=== PATIENT | male | born 1945 | race Caucasian/White ===

== ENCOUNTER 2018-01-13 17:05 | Inpatient (IN) | payer MEDICARE, OTHER ==
[~2018-01-13] VITALS: Ht 177.8 cm; Wt 94.9 kg
[~2018-01-13 17:05] MED LIST: ACET300T4 PO; ALLO300T2 PO; ASPI1TAB69 PO; FLUO40CA PO; HYDR12.56 PO; LISI40TA PO; SIMV40TA PO; TAMS0.4C4 PO
[2018-01-13 17:07] VITALS: BP 135/77; PULSE 90; RESP 16; TEMP 98.4; O2SAT 94
[2018-01-13] MEDS ORDERED: ACETAMINOPHEN/HYDROcodone 325 MG/5 MG TAB PO ONE (17:30)
--- NOTE | 2018-01-13 17:37 | PD ---
HPI Chief Complaint: Hip Injury Time Seen by Provider: 17:07 Travel History International Travel<30 days: No Contact w/Intl Traveler<30days: No Traveled to known affect area: No History of Present Illness HPI 72-year-old male arrives with pain in the right hip right knee and right elbow. He reports pulling weeds and using some heavy machinery yesterday when he fell. There is no loss of consciousness or head injury. The onset was sudden. Since then he has had constant pain in the right hip. It is worse to palpation. He has stepped a few steps with severe pain. He is unable to walk otherwise. 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) Psychiatric: Yes (ANXIETY AND DEPRESSION) Reproductive: No Respiratory: Yes (ASTHMATIC BRONCHITIS A CHILD) Thyroid Disease: No Influenza Vaccination: Yes Past Surgical History Abdominal Surgery: No AICD: No Cardiac Surgery: No Ear Surgery: No Endocrine Surgery: No Eye Surgery: Yes (NEEDLE IN OPTIC NERVE) Genitourinary Surgery: Yes (KIDNEY STONES, "TESTICULAR HERNIA") Gynecologic Surgery: No Joint Replacement: No Oral Surgery: Yes (TONSILLECTOMY) Pacemaker: No Thoracic Surgery: No Other Surgery: Yes Social History Alcohol Use: Yes (rarely) Tobacco Use: No Substance Use: No Allergies-Medications (Allergen,Severity, Reaction): Coded Allergies: Sulfa (Sulfonamide Antibiotics) (Unverified Allergy, Intermediate, 01/13/18 ) penicillin G (Unverified Allergy, Intermediate, Rash, 01/13/18) Reported Meds & Prescriptions Reported Meds & Active Scripts Active Hydrochlorothiazide 12.5 Mg Tab 12.5 Mg PO DAILY Acetaminophen-Codeine 300-60 mg Tab 1 Tab PO Q6HR PRN Reported Lisinopril 40 Mg Tab 40 Mg PO DAILY Allopurinol 300 Mg Tab 300 Mg PO DAILY Simvastatin 40 Mg Tab 40 Mg PO HS Tamsulosin (Tamsulosin HCl) 0.4 Mg Cap 0.4 Mg PO HS Fluoxetine (Fluoxetine HCl) 40 Mg Cap 40 Cap PO DAILY Aspirin 81 Mg Tabdr 81 Mg PO DAILY Review of Systems Except as stated in HPI: all other systems reviewed are Neg General / Constitutional: No: Fever Physical Exam Narrative GENERAL: 72-year-old male well-nourished well-developed no acute distress Vital Signs Date Time Temp Pulse Resp B/P (MAP) Pulse Ox O2 Delivery O2 Flow Rate FiO2 01/13/18 17:07 98.4 90 16 135/77 (96) 94 SKIN: Warm and dry. HEAD: Atraumatic. Normocephalic. EYES: Pupils equal and round. No scleral icterus. No injection or drainage. ENT: No nasal bleeding or discharge. Mucous membranes pink and moist. NECK: Trachea midline. No JVD. CARDIOVASCULAR: Regular rate and rhythm. RESPIRATORY: No accessory muscle use. Clear to auscultation. Breath sounds equal bilaterally. GASTROINTESTINAL: Abdomen soft, non-tender, nondistended. Hepatic and splenic margins not palpable. MUSCULOSKELETAL: No pain with axial load of the right lower extremity. There is tenderness overlying the greater trochanter on the right side. Pelvis feels stable on exam. Minimal abrasion overlying the lateral right knee. Minimal abrasion overlying the right elbow. NEUROLOGICAL: Awake and alert. No obvious cranial nerve deficits. Motor grossly within normal limits. Five out of 5 muscle strength in the arms and legs. Normal speech. PSYCHIATRIC: Appropriate mood and affect; insight and judgment normal. Data Data Last Documented VS Vital Signs Date Time Temp Pulse Resp B/P (MAP) Pulse Ox O2 Delivery O2 Flow Rate FiO2 01/13/18 17:07 98.4 90 16 135/77 (96) 94 Orders Orders Elbow, Complete (4 Vws) (01/13/18 17:16) Knee, Complete (4vws) (01/13/18 17:16) Ice/Cold Pack (01/13/18 17:16) Hip, Uni(Ap&Lat) W Ap Pelvis (01/13/18 ) Acetamin-Hydrocod 325-5 Mg ([place] 5-325 (01/13/18 17:30) Electrocardiogram (01/13/18 18:27) Complete Blood Count With Diff (01/13/18 18:27) Comprehensive Metabolic Panel (01/13/18 18:27) Prothrombin Time / Inr (Pt) (01/13/18 18:27) Act Partial Throm Time (Ptt) (01/13/18 18:27) Chest, Single Ap (01/13/18 18:27) Iv Access Insert/Monitor (01/13/18 18:27) Oximetry (01/13/18 18:27) Ecg Monitoring (01/13/18 18:27) Morphine Inj (Morphine Inj) (01/13/18 18:30) Sodium Chloride 0.9% Flush (Ns Flush) (01/13/18 18:30) Admit Order (Ed Use Only) (01/13/18 ) MDM Medical Decision Making Medical Screen Exam Complete: Yes Emergency Medical Condition: Yes Medical Record Reviewed: Yes Differential Diagnosis A fracture, femur fracture, elbow fracture Narrative Course Patient has a femoral neck fracture and will be admitted for operative repair. Discussed with ortho PA, Arsh Sands. Pt follows with [facility]. Admission to Dr Paul hull. Last Impressions Knee X-Ray 01/13/181715 Signed Impressions: Service Date/Time: Saturday, January 13, 2018 17:39 - CONCLUSION: 1. Degenerative changes. 2. Questionable fracture lateral tibial plateau. Sukhi Smith MD Elbow X-Ray 01/13/186 Signed Impressions: Service Date/Time: Saturday, January 13, 2018 17:45 - CONCLUSION: Degenerative changes without fracture. Sukhi Smith MD Hip and Pelvis X-Ray 01/13/18 0000 Signed Impressions: Service Date/Time: Saturday, January 13, 2018 17:36 - CONCLUSION: Nondisplaced fracture right femoral neck. Sukhi Smith MD Diagnosis Primary Impression: Femoral neck fracture Qualified Codes: S72.001A - Fracture of unspecified part of neck of right femur, initial encounter for closed fracture Additional Impression: Fall Qualified Codes: W19.XXXA - Unspecified fall, initial encounter Admitting Information Admitting Physician Requests: Admit Chadwick Wilder MD Jan 13, 2018 17:37
--- NOTE | 2018-01-13 18:16 | RADRPT ---
EXAM DATE/TIME: 01/13/2018 17:36 [facility] COMPARISON: No previous studies available for comparison. INDICATIONS : Patient complains of right hip pain status post fall. MEDICAL HISTORY : None. SURGICAL HISTORY : None. None. ENCOUNTER: Initial ACUITY: 1 day PAIN SCORE: 8/10 LOCATION: Right Hip FINDINGS: Examination of the right hip was performed with AP Pelvis. Nondisplaced fracture right femoral neck. The acetabulum is grossly intact. CONCLUSION: Nondisplaced fracture right femoral neck. Sukhi Smith MD on January 13, 2018 at 18:13 Board Certified Radiologist. This report was verified electronically.
--- NOTE | 2018-01-13 18:18 | RADRPT ---
EXAM DATE/TIME: 01/13/2018 17:39 [facility] COMPARISON: No previous studies available for comparison. INDICATIONS : Patient complains of right knee pain status post fall. MEDICAL HISTORY : None. SURGICAL HISTORY : None. ENCOUNTER: Initial ACUITY: 1 day PAIN SCORE: 5/10 LOCATION: Right Knee FINDINGS: Four view examination of the right knee demonstrates questionable fracture lateral tibial plateau. D egenerative changes. The suprapatellar soft tissues have a normal configuration. CONCLUSION: 1. Degenerative changes. 2. Questionable fracture lateral tibial plateau. Sukhi Smith MD on January 13, 2018 at 18:14 Board Certified Radiologist. This report was verified electronically.
--- NOTE | 2018-01-13 18:19 | RADRPT ---
EXAM DATE/TIME: 01/13/2018 17:45 [facility] COMPARISON: No previous studies available for comparison. INDICATIONS : Patient complains of right elbow pain status post fall. MEDICAL HISTORY : None. SURGICAL HISTORY : None. ENCOUNTER: Initial ACUITY: 1 day PAIN SCORE: 4/10 LOCATION: Right Elbow FINDINGS: Multiple view examination of the right elbow demonstrates no soft tissue swelling, joint effusion, or fracture. Degenerative changes without fracture. Bony mineralization is normal. CONCLUSION: Degenerative changes without fracture. Sukhi Smith MD on January 13, 2018 at 18:16 Board Certified Radiologist. This report was verified electronically.
[2018-01-13] MEDS ORDERED: MORPHINE SULFATE 4 MG/ML INJ IV PUSH ONE (18:30)
[2018-01-13] MEDS ORDERED: SODIUM CHLORIDE 0.9% FLUSH 10 ML FLUSH IVF PRN (18:30)
[2018-01-13 19:01] LABS: AUTOMATED NEUTROPHIL # 8.7 TH/MM3 (1.8-7.7); BASOPHIL # 0.1 TH/MM3 (0-0.2); BASOPHIL % 0.5 % (0.0-2.0); EOSINOPHIL # 0.5 TH/MM3 (0-0.4); EOSINOPHIL % 4.3 % (0.0-4.0); HEMATOCRIT 47.1 % (39.0-51.0); HEMOGLOBIN 15.7 GM/DL (13.0-17.0); LYMPH % 10.2 % (9.0-44.0); LYMPHOCYTE # 1.1 TH/MM3 (1.0-4.8); MEAN CELL VOLUME 89.9 FL (80.0-100.0); MEAN CORPUSCULAR HGB CONC 33.4 % (32.0-36.0); MEAN PLATELET VOLUME 7.9 FL (7.0-11.0); MONO % 6.5 % (0.0-8.0); MONOCYTE # 0.7 TH/MM3 (0-0.9); NEUT % 78.5 % (16.0-70.0); PLATELET COUNT 149 TH/MM3 (150-450); RED BLOOD COUNT 5.24 MIL/MM3 (4.50-5.90); RED CELL DISTRIBUTION WIDTH 14.9 % (11.6-17.2); WHITE BLOOD COUNT 11.1 TH/MM3 (4.0-11.0)
--- NOTE | 2018-01-13 19:17 | RADRPT ---
EXAM DATE/TIME: 01/13/2018 19:01 [facility] COMPARISON: No previous studies available for comparison. INDICATIONS : Evaluate for pneumothorax, pneumonia, and communicable diseases. Pre-op for right hip surgery. MEDICAL HISTORY : None. SURGICAL HISTORY : None. ENCOUNTER: Initial ACUITY: 1 day PAIN SCORE: 0/10 LOCATION: Bilateral chest FINDINGS: A single view of the chest demonstrates the lungs to be symmetrically aerated without evidence of mas s, infiltrate or effusion. The cardiomediastinal contours are unremarkable. Osseous structures are intact. CONCLUSION: No acute disease. Sukhi Smith MD on January 13, 2018 at 19:14 Board Certified Radiologist. This report was verified electronically.
[2018-01-13 19:42] VITALS: BP 128/88; PULSE 78; RESP 14; O2SAT 96
[2018-01-13 19:42] LABS: ALBUMIN 3.9 GM/DL (3.4-5.0); AST (GOT) 27 U/L (15-37); BICARBONATE 24.6 MEQ/L (21.0-32.0); BLOOD UREA NITROGEN 28 MG/DL (7-18); CALCIUM 9.2 MG/DL (8.5-10.1); CHLORIDE 108 MEQ/L (98-107); CREATININE 1.27 MG/DL (0.60-1.30); GLOMERULAR FILTRATION RATE 56 ML/MIN (>89); GLUCOSE,RANDOM 102 MG/DL (74-106); SODIUM (NA) 142 MEQ/L (136-145)
[2018-01-13 19:45] LABS: ALKALINE PHOSPHATASE 70 U/L (45-117); ALT (GPT) 38 U/L (12-78); TOTAL BILIRUBIN ADULT 0.5 MG/DL (0.2-1.0); TOTAL PROTEIN 7.5 GM/DL (6.4-8.2)
[2018-01-13] MEDS ORDERED: ONDANSETRON HCL 4 MG/2 ML VIAL IVP PRN (20:30)
[2018-01-13] MEDS ORDERED: SODIUM CHLORIDE 0.9% FLUSH 10 ML FLUSH IV FLUSH PRN (20:30)
[2018-01-13] MEDS ORDERED: BISACODYL 10 MG SUPP RECTAL PRN (20:30)
[2018-01-13] MEDS ORDERED: ACETAMINOPHEN 325 MG TAB PO PRN (20:30)
[2018-01-13] MEDS ORDERED: NALOXONE HCL 0.4 MG/ML AMP IV PUSH PRN (20:30)
--- NOTE | 2018-01-13 20:33 | HHI.HP ---
HPI Service Family Medicine Primary Care Physician Unknown Admission Diagnosis R Femoral Neck Fracture; Fall Diagnoses: International Travel<30 Days: No Contact w/Intl Traveler<30days: No Known Affected Area: No History of Present Illness is a [address] Kapadia with PMH of HTN, hyperlipidemia, and arthritis who presents to [place] ED due to inability to ambulate after fall injury resulting in femoral neck yesterday. Mr. Edward reports that he injured his right leg after a fall injury yesterday in his yard while attempting to help his daughter with yard work. Patient slipped while wearing sandals resulting in a fall where he landed on his side. Patient was unable to get up for 15 minutes after the fall, but was then able to ambulate indoors while limping. Patient was carrying a chain saw at the time of the fall but did not cut himself with it. Patient does not report any loss of consciousness or head injury with fall. Overnight, patient laid in bed and was unable to ambulate/get out of bed. Due to this, patient sought care today per his . Patient does not report symptoms at this time with exception of chronic bilateral lower extremity numbness/tingling. No recent changes. Patient does not report headache, vision changes, shortness of breath, chest pain, abnormal urination, or abnormal bowel movements. Supplemental interviewing after EMR Review: Patient denies any chest pain; he has not had this for several months. He did not follow-up with Cardiology as instructed by Dr. Kapadia 09/2017. Patient has not had any additional syncope since 09/2017. Patient has had chronic right knee pain; he has had prior discussions with [facility] physicians about possible surgical interventions to right knee. Review of Systems Constitutional: DENIES: Fever, Chills Eyes: COMPLAINS OF: Blurred vision (chronic), Vision loss (chronic) Ears, nose, mouth, throat: DENIES: Running Nose, Sinus Pain Respiratory: DENIES: Cough, Shortness of breath Gastrointestinal: DENIES: Abdominal pain, Constipation Genitourinary: DENIES: Urgency, Dysuria Musculoskeletal: COMPLAINS OF: Joint pain, DENIES: Back pain Integumentary: DENIES: Abnormal pigmentation Neurologic: DENIES: Headache, Localized weakness Psychiatric: DENIES: Anxiety, Confusion Past Family Social History Past Medical History Per Patient HTN HLP Arthritis Stroke R eye Per EMR Hypertension Gout Kidney stones Legally blind Osteoarthritis in knees and neck Inguinal hernia Varicose veins Tinnitus HLD Depression GERD Kidney disease PTSD, [employer] War vet: refuses psychiatry and counseling referrals Syncopal episodes (reported to me on 10/10/17, working up) Chest pains with exertion (reported to me on 10/10/17, referred to cardiology ) Past Surgical History Per Patient 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 Alcohol: Occasional Drug use: none Live with Disabled Physical Exam Vital Signs Vital Signs Date Time Temp Pulse Resp B/P (MAP) Pulse Ox O2 Delivery O2 Flow Rate FiO2 01/13/18 19:43 80 14 96 Room Air 01/13/18 19:42 78 14 128/88 (101) 96 Room Air 01/13/18 17:07 98.4 90 16 135/77 (96) 94 Physical Exam GENERAL: no apparent distress. SKIN: No rashes, ecchymoses or lesions. Cool and dry. Tattoos on skin HEAD: Atraumatic. Normocephalic. No temporal or scalp tenderness. EYES: Pupils equal round and reactive. Extraocular motions grossly intact. NECK: No appreciated lymphadenopathy CARDIOVASCULAR: Regular rate and rhythm without murmurs. Normal peripheral perfusion RESPIRATORY: Clear to auscultation. Breath sounds equal bilaterally. No wheezes to auscultation GASTROINTESTINAL: Abdomen soft, non-tender, nondistended. No hepato-splenomegaly , or palpable masses. No guarding. MUSCULOSKELETAL: Extremities without edema. No calf tenderness. Strength and ROM of lower extremities deferred due to RLE pain NEUROLOGICAL: Awake and alert. Cranial nerves grossly intact. Peripheral motor and sensory function grossly normal. Normal speech. Laboratory Laboratory Tests Test 01/13/18 18:52 White Blood Count 11.1 Red Blood Count 5.24 Hemoglobin 15.7 Hematocrit 47.1 Mean Corpuscular Volume 89.9 Mean Corpuscular Hemoglobin 30.0 Mean Corpuscular Hemoglobin Concent 33.4 Red Cell Distribution Width 14.9 Platelet Count 149 Mean Platelet Volume 7.9 Neutrophils (%) (Auto) 78.5 Lymphocytes (%) (Auto) 10.2 Monocytes (%) (Auto) 6.5 Eosinophils (%) (Auto) 4.3 Basophils (%) (Auto) 0.5 Neutrophils # (Auto) 8.7 Lymphocytes # (Auto) 1.1 Monocytes # (Auto) 0.7 Eosinophils # (Auto) 0.5 Basophils # (Auto) 0.1 CBC Comment DIFF FINAL Differential Comment Prothrombin Time 10.0 Prothromb Time International Ratio 1.0 Activated Partial Thromboplast Time 27.3 Blood Urea Nitrogen 28 Creatinine 1.27 Random Glucose 102 Total Protein 7.5 Albumin 3.9 Calcium Level 9.2 Alkaline Phosphatase 70 Aspartate Amino Transf (AST/SGOT) 27 Alanine Aminotransferase (ALT/SGPT) 38 Total Bilirubin 0.5 Sodium Level 142 Potassium Level 4.0 Chloride Level 108 Carbon Dioxide Level 24.6 Anion Gap 9 Estimat Glomerular Filtration Rate 56 Result Diagram: 01/13/18 1852 01/13/18 185 Imaging Last Impressions Chest X-Ray 01/13/18 1827 Signed Impressions: Service Date/Time: Saturday, January 13, 2018 19:01 - CONCLUSION: No acute disease. Sukhi Smith MD Knee X-Ray 01/13/181715 Signed Impressions: Service Date/Time: Saturday, January 13, 2018 17:39 - CONCLUSION: 1. Degenerative changes. 2. Questionable fracture lateral tibial plateau. Sukhi Smith MD Elbow X-Ray 01/13/181715 Signed Impressions: Service Date/Time: Saturday, January 13, 2018 17:45 - CONCLUSION: Degenerative changes without fracture. Sukhi Smith MD Hip and Pelvis X-Ray 01/13/18 0000 Signed Impressions: Service Date/Time: Saturday, January 13, 2018 17:36 - CONCLUSION: Nondisplaced fracture right femoral neck. MD Darrell Ozuna VTE Risk Assessment Caprini VTE Risk Assessment: Mod/High Risk (score >= 2) VTE Pharm Contraindication: planned surgical intevention; will initiate post-op Caprini Risk Assessment Model Point Value = 1 Point Value = 2 Point Value = 3 Point Value = 5 Age 41-60 Minor surgery BMI > 25 kg/m2 Swollen legs Varicose veins or History of unexplained or recurrent spontaneous Oral contraceptives or hormone replacement Sepsis (< 1 month) Serious lung disease, including pneumonia (< 1 month) Abnormal pulmonary function Acute myocardial infarction Congestive heart failure (< 1 month) History of inflammatory bowel disease Medical patient at bed rest Age 61-74 Arthroscopic surgery Major open surgery (> 45 min) Laparoscopic surgery (> 45 min) Malignancy Confined to bed (> 72 hours) Immobilizing plaster cast Central venous access Age >= 75 History of VTE Family history of VTE Factor V Leiden Prothrombin [id number] Lupus anticoagulant Anticardiolipin antibodies Elevated serum homocysteine Heparin-induced thrombocytopenia Other congenital or acquired thrombophilia Stroke (< 1 month) Elective arthroplasty Hip, pelvis, or leg fracture Acute spinal cord injury (< 1 month) Prophylaxis Regimen Total Risk Factor Score Risk Level Prophylaxis Regimen 0-1 Low Early ambulation 2 Moderate Order ONE of the following: *Sequential Compression Device (SCD) *Heparin 5000 units SQ BID 3-4 Higher Order ONE of the following medications: *Heparin 5000 units SQ TID *Enoxaparin/Lovenox 40 mg SQ daily (WT < 150 kg, CrCl > 30 mL/min) *Enoxaparin/Lovenox 30 mg SQ daily (WT < 150 kg, CrCl > 10-29 mL/min) *Enoxaparin/Lovenox 30 mg SQ BID (WT < 150 kg, CrCl > 30 mL/min) AND/OR *Sequential Compression Device (SCD) 5 or more Highest Order ONE of the following medications: *Heparin 5000 units SQ TID (Preferred with Epidurals) *Enoxaparin/Lovenox 40 mg SQ daily (WT < 150 kg, CrCl > 30 mL/min) *Enoxaparin/Lovenox 30 mg SQ daily (WT < 150 kg, CrCl > 10-29 mL/min) *Enoxaparin/Lovenox 30 mg SQ BID (WT < 150 kg, CrCl > 30 mL/min) AND *Sequential Compression Device (SCD) Assessment and Plan Assessment and Plan Mr. Edward is a 72 yo male with: Code Status Full Code Problem List: (1) Fall with injury ICD Codes: W19.XXXA - Unspecified fall, initial encounter Status: Acute Plan: Impression: Fall injury yesterday resulting in inability to ambulate. Hip /Pelvic XR- nondisplaced fracture of right femoral neck. . Knee XR- degenerative changes. Questionable fracture of lateral tibial plateau -Preoperative surgical risk -Impression: Prior history of tobacco abuse; CXR without acute disease. Preoperative electrolytes wnl. CBC with mild leukocytosis presumed to be reactive. ECG today without changes from priors. Per EMR review, patient had reported chest pain and syncope to Dr. Kapadia 09/2017 and cardiology referral was advised; he has had no symptoms since that time and did not follow-up. Since no symptoms concerning for angina or other vascular disease, patient does not seem to have any active cardiac disease -Will continue Statin and ASA 81 perioperatively -Pain control (on home Tylenol/Codeine) -[place] 5/325 for pain 1-5 -[place] 10/325 for pain 6-10 -Morphine 3mg IV for BRK pain -Management per Orthopedic Surgery -Per discussion with ED and Orthopedic team; patient will be made NPO for planned surgical repair of femoral neck tomorrow -*will defer further imaging of tibial plateau to Orthopedic surgery; this may be chronic due to patient's discussions regarding [facility] -NPO after midnight (2) HTN (hypertension) ICD Codes: I10 - Essential (primary) hypertension Plan: Impression: Normotensive in ED; on home HCTZ and Lisinopril. 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 ICD Codes: N40.1 - Enlarged prostate with lower urinary tract symptoms; N13.8 - Other obstructive and reflux uropathy Status: Acute Plan: Impression: On home Tamsulosin 0.4mg HS -Continue home Tamsulosin (4) Depression ICD Codes: F32.9 - Major depressive disorder, single episode, unspecified Plan: Impression: Controlled at this time -Continue home Fluoxetine (5) Gout ICD Codes: M10.9 - Gout, unspecified Status: Acute Plan: -Continue home Allopurinol (6) DVT Prophylaxis Status: Acute Plan: -Will plan to initiate DVT PPX post-operatively (7) Fluids, Electrolytes, and Nutrition Status: Acute Plan: Fluids: will start IVF with NS once NPO for maintenance Electrolytes: metabolic panel reassuring on admission Nutrition: Regular diet; NPO after midnight Physician Certification 2 Midnight Certification Type: Admission for Inpatient Services Order for Inpatient Services The services are ordered in accordance with Medicare regulations or non- Medicare payer requirements, as applicable. In the case of services not specified as inpatient-only, they are appropriately provided as inpatient services in accordance with the 2-midnight benchmark. Estimated LOS (days): 3 days is the estimated time the patient will need to remain in the hospital, assuming treatment plan goals are met and no additional complications. Post-Hospital Plan: Not yet determined Problem Qualifiers (1) Fall with injury: Qualified Codes: W19.XXXA - Unspecified fall, initial encounter (2) HTN (hypertension): Qualified Codes: I10 - Essential (primary) hypertension Abhijeet Ahumada MD R3 Jan 13, 2018 20:33
[2018-01-13] MEDS ORDERED: SODIUM CHLORIDE 0.9% FLUSH 10 ML FLUSH IV FLUSH SCH (21:00)
[2018-01-13 21:13] VITALS: BP 127/77; PULSE 68; RESP 20; TEMP 98.3; O2SAT 96
[2018-01-13] MEDS ORDERED: ACETAMINOPHEN/HYDROcodone 325 MG/10 MG TAB PO PRN (21:15)
[2018-01-13] MEDS ORDERED: MORPHINE SULFATE 4 MG/ML INJ IV PUSH PRN (21:15)
[2018-01-13] MEDS ORDERED: ACETAMINOPHEN/HYDROcodone 325 MG/5 MG TAB PO PRN (21:15)
[2018-01-13] MEDS ORDERED: hydrALAZINE HCL 10 MG TAB PO PRN (21:45)
[2018-01-13] MEDS: PRAVASTATIN SOD 80 MG TAB PO SCH (23:00)
[2018-01-13] MEDS: DOCUSATE SODIUM 50 MG/SENNA 8.6 MG TAB PO SCH (23:00)
[2018-01-13] MEDS: TAMSULOSIN HCL 0.4 MG CAP PO SCH (23:00)
[2018-01-14] VITALS (12 sets, daily range): BP systolic 80–129; BP diastolic 63–89; PULSE 68–92; RESP 18–35; TEMP 98.2–98.7; O2SAT 92–100
--- NOTE | 2018-01-14 00:03 | EKG ---
Date Performed: 01/13/2018 Time Performed: 19:50:26 PTAGE: 72 years EKG: Sinus rhythm NORMAL ECG PREVIOUS TRACING : 12/23/2015 09.06 Since the previous tracing, no significant change noted DOCTOR: Joey Wilder Interpretating Date/Time 01/14/2018 00:02:50
[2018-01-14] MEDS ORDERED: LACTATED RINGER'S 1000 ML IV PRN (01:15)
[2018-01-14] MEDS ORDERED: POVIDONE IODINE 5% (ANTISEPSIS KIT) 4 APPLICATIONS EACH NARE PRN (01:15)
[2018-01-14] MEDS ORDERED: CHLORHEXIDINE GLUCONATE 2 % 1 PACK (2 CLOTHS) TOPICAL PRN (01:15)
[2018-01-14] MEDS ORDERED: METOPROLOL TARTRATE 25 MG TAB PO PRN (01:15)
[2018-01-14] MEDS ORDERED: SODIUM CHLORID 0.9% 500 ML IV PRN (01:15)
[2018-01-14 06:47] LABS: AUTOMATED NEUTROPHIL # 7.2 TH/MM3 (1.8-7.7); BASOPHIL # 0.1 TH/MM3 (0-0.2); BASOPHIL % 0.6 % (0.0-2.0); EOSINOPHIL # 0.5 TH/MM3 (0-0.4); HEMATOCRIT 45.1 % (39.0-51.0); HEMOGLOBIN 15.2 GM/DL (13.0-17.0); LYMPH % 10.7 % (9.0-44.0); MEAN CELL VOLUME 89.8 FL (80.0-100.0); MEAN CORPUSCULAR HEMOGLOBIN 30.2 PG (27.0-34.0); MEAN CORPUSCULAR HGB CONC 33.6 % (32.0-36.0); MEAN PLATELET VOLUME 8.3 FL (7.0-11.0); MONO % 6.9 % (0.0-8.0); MONOCYTE # 0.7 TH/MM3 (0-0.9); NEUT % 76.8 % (16.0-70.0); PLATELET COUNT 136 TH/MM3 (150-450); RED BLOOD COUNT 5.03 MIL/MM3 (4.50-5.90); RED CELL DISTRIBUTION WIDTH 15.4 % (11.6-17.2); WHITE BLOOD COUNT 9.4 TH/MM3 (4.0-11.0)
[2018-01-14] MEDS: SODIUM CHLOR 0.9% 1000 ML INJ 1,000 ML IV SCH ×2 (07:01→14:15)
[2018-01-14 07:04] LABS: CREATININE 1.09 MG/DL (0.60-1.30)
[2018-01-14] MEDS ORDERED: CLINDAMYCIN PHOS 900 MG/6 ML VIAL ONE (08:21)
[2018-01-14] MEDS ORDERED: FLUoxetine HCL 20 MG CAP PO SCH (09:00)
[2018-01-14] MEDS ORDERED: BUPIVACAINE/EPINEPHRINE 0.5% PF 30 ML VIAL ONE (09:00)
[2018-01-14] MEDS ORDERED: HYDROCHLOROTHIAZIDE 12.5 MG CAP PO SCH (09:00)
--- NOTE | 2018-01-14 09:11 | PD.OP ---
cc: Chicho Nobles MD Operative Report Date of Surgery: Jan 14, 2018 Preoperative Diagnosis: Impacted right femoral neck fracture Postoperative Diagnosis: Procedure: Right hip pinning Anesthesia: General Surgeon: Chicho Nobles [employer] Sql Developer(s): Arsh Sands PA-C Operation and Findings: Implants used: ITS Plan of activity: TTWB x 3 weeks, then 50% weightbearing Patient was seen and evaluated preoperatively. The patient has significant hip pain from impacted femoral neck fracture. The risk and benefits of surgery were discussed in depth with the patient to include bleeding infection nonunion malunion, avascular necrosis and need for hip replacement painful hardware as well as medical competitions including but not stroke heart attack and . Informed consent was obtained. Operative site was marked. Patient was brought to the operating room and placed on fracture table. IV sedation was administered by anesthesiologist. Timeout procedure was performed. Hip and leg were prepped with alcohol followed by Hibiclens and draped in the usual sterile fashion. IV antibiotics were given prior to incision. Procedure began with evaluation of fracture under fluoroscopy. Leg was gently manipulated to improve alignment. Excellent reduction was achieved. Fluoroscopy was used to confirm reduction. A three cm incision was along the lateral aspect of the proximal femur . Subcutaneous tissue was dissected bluntly. Three guidepins were placed through the lateral cortex of the proximal femur. Guide pins were placed in an inverted triangle position. Guide pins were advanced across the fracture site into the femoral head. Fluoroscopy confirmed appropriate guidepin placement. The screw lengths were measured. A cannulated drill was placed over each of the guide pins. Appropriate length cannulated screws were placed over the guidepins. Good compression was applied across the fracture. Final fluoroscopy revealed well aligned fracture with well-placed hardware. Incision was closed with 3-0 Vicryl and mikayla. Sterile dressings were applied. Patient was awakened and transferred to recovery room. Chicho Nobles MD Jan 14, 2018 09:11
[2018-01-14] MEDS ORDERED: MORPHINE SULFATE 4 MG/ML INJ IV PUSH PRN (09:15)
[2018-01-14] MEDS ORDERED: Post-op Orders (for Pharmacy) XX ONE (09:15)
[2018-01-14] MEDS ORDERED: ERGOCALCIFEROL (VIT D2) 50,000 UNIT CAP PO ONE (09:15)
--- NOTE | 2018-01-14 09:25 | PD.ORT.PN ---
Subjective Subjective Remarks Fall 2 days ago. He has been unable to ambulate and put weight on the right lower extremity. He has had chronic pain in the right knee due to osteoarthritis. X-rays show a minimally displaced fracture of the femoral neck of the right hip Objective Vitals Vital Signs Date Time Temp Pulse Resp B/P (MAP) Pulse Ox O2 Delivery O2 Flow Rate FiO2 01/14/18 05:40 98.5 70 18 129/77 (94) 92 01/14/18 04:19 21 01/14/18 00:00 98.2 73 20 80/ 92 01/13/18 21:13 98.3 68 20 127/77 (94) 96 01/13/18 21:05 01/13/18 19:43 80 14 96 Room Air 01/13/18 19:42 78 14 128/88 (101) 96 Room Air 01/13/18 17:07 98.4 90 16 135/77 (96) 94 Result Diagram: 01/14/18 0425 01/14/18 0425 Other Results Laboratory Tests Test 01/13/18 18:52 Prothromb Time International Ratio 1.0 RATIO Prothrombin Time 10.0 SEC (9.8-11.6) Imaging Last 72 hours Impressions Chest X-Ray 01/13/181826 Signed Impressions: Service Date/Time: Saturday, January 13, 2018 19:01 - CONCLUSION: No acute disease. Sukhi Smith MD Knee X-Ray 01/13/181715 Signed Impressions: Service Date/Time: Saturday, January 13, 2018 17:39 - CONCLUSION: 1. Degenerative changes. 2. Questionable fracture lateral tibial plateau. Sukhi Smith MD Elbow X-Ray 01/13/181715 Signed Impressions: Service Date/Time: Saturday, January 13, 2018 17:45 - CONCLUSION: Degenerative changes without fracture. Sukhi Smith MD Hip and Pelvis X-Ray 01/13/18 0000 Signed Impressions: Service Date/Time: Saturday, January 13, 2018 17:36 - CONCLUSION: Nondisplaced fracture right femoral neck. Sukhi Smith MD Last 24 hours Impressions Chest X-Ray 01/13/181826 Signed Impressions: Service Date/Time: Saturday, January 13, 2018 19:01 - CONCLUSION: No acute disease. Sukhi Smith MD Knee X-Ray 01/13/181715 Signed Impressions: Service Date/Time: Saturday, January 13, 2018 17:39 - CONCLUSION: 1. Degenerative changes. 2. Questionable fracture lateral tibial plateau. Sukhi Smith MD Elbow X-Ray 01/13/181715 Signed Impressions: Service Date/Time: Saturday, January 13, 2018 17:45 - CONCLUSION: Degenerative changes without fracture. Sukhi Smith MD Objective Remarks Bilateral upper extremities: No new pain or decreased range of motion. Previous osteoarthritis of shoulders. Intact sensation distally in bilateral upper extremities Left lower extremity: Full range of motion neurovascular intact. Right lower extremity: Pain to palpation of hip. Pain with movement of hip. Chronic pain with osteoarthritis of right knee. Small abrasion over the knee. Distally intact sensation good capillary refills. Active dorsiflexion plantar flexion of foot Assessment & Plan Assessment and Plan Valgus impacted femoral neck fracture status post percutaneous pinning of right hip POD 0 Toe-touch weightbearing right lower extremity No active leg lifts or quad sets Daily dressing changes in a POD 2 with Xeroform and Primapore Lovenox Incentive spirometry Plan for follow-up x-rays and examination with Dr. Guerrero or PA in 2 weeks Roderick Sands Jr. Jan 14, 2018 09:25
[2018-01-14] MEDS ORDERED: VITA500012 PO (09:28)
[2018-01-14] MEDS ORDERED: HYDR-3580 PO (09:28)
[2018-01-14] MEDS ORDERED: XARE10TA PO (09:28)
[2018-01-14] MEDS ORDERED: WALKER WHEELS/F1 MIS (09:28)
[2018-01-14] MEDS ORDERED: CALCTAB19 PO (09:28)
[2018-01-14] MEDS ORDERED: *morphine SULFATE 4 MG/ML PERIprocedure ONLY ONE (09:42)
--- NOTE | 2018-01-14 09:43 | MB ---
cc: Chicho Guerrero MD DATE: 01/14/2018 REASON FOR CONSULTATION: Right femoral neck fracture. CONSULTING PHYSICIAN: Dr. Jennifer Cabral. HISTORY OF PRESENT ILLNESS: Mr. Edward is a 72-year-old male who had a fall 2 days ago. He had immediate right hip pain. He had difficulty standing or ambulating. He has had pain when he tries to put weight on his right foot. He describes a mechanical fall. He was helping his daughter do yard work. He was wearing flip flops. His foot slipped out of the flip flop causing him to lose his balance and fall. He landed on his right side. His only complaint is his right hip. Pain is worse with movement and improved with rest. PAST MEDICAL HISTORY: Illnesses: Hypertension, high cholesterol, arthritis, history of stroke, hypertension, gout, kidney stones, osteoarthritis, hernia, reflux. PAST SURGICAL HISTORY: Testicular torsion repair, basal cell carcinoma repair, eye surgery, hernia repair, kidney stone removal. ALLERGIES: SULFA, PENICILLIN. FAMILY HISTORY: Positive for arthritis in his mother, coronary artery disease in his father and stroke in his father. SOCIAL HISTORY: The patient smoked a pack and half a day, but quit 20 years ago. He drinks alcohol occasionally. He denies drug use. He lives with his . REVIEW OF SYSTEMS: The patient denies headache, neck pain, chest pain, shortness of breath, abdominal pain, nausea, vomiting, recent weight loss, fever, chills, numbness or tingling of extremities, recent weight loss. He has had chronic vision loss. He also had some tinnitus. He complains of right hip pain. PHYSICAL EXAMINATION: GENERAL: The patient is a well-developed, well-nourished, 72-year-old male. He is awake and alert. He is alert and oriented x 3. He is in no acute distress. VITAL SIGNS: Temperature 98.5, pulse 70, respirations 18, blood pressure 129/77, O2 saturations 92% on room air. HEENT: Head: The patient is normocephalic. Pupils are equal. NECK: Soft, nontender. The trachea is in the midline. ABDOMEN: Soft, nontender, nondistended. EXTREMITIES: Examination of bilateral upper extremities reveals no pain with shoulder, elbow and wrist motion. He has intact sensation in all fingers. He has good cap refill in all fingers. Skin is intact. Radial pulses are palpable. Examination of left leg reveals no pain with hip, knee or ankle motion. Skin is intact. Dorsalis pedis pulses palpable. Sensation is intact. Skin is intact. Examination of right leg reveals pain with any hip motion. He has no tenderness of his knee, tibia or ankle. Calf and thigh compartments are soft. Dorsalis pedis pulses palpable. Sensation is intact. X-RAYS: X-rays of right hip are reviewed. X-rays reveal a mildly impacted right femoral neck fracture. LABORATORY DATA: The patient's white blood cell count of 9.4, hematocrit 45.1, platelet count 136. INR 1.0, BUN 29, creatinine is 1.09. IMPRESSION: 1. Impacted right femoral neck fracture. 2. Reflux. 3. Hypertension. 4. Osteoarthritis. PLAN: Treatment options were discussed with the patient. At this point, I would recommend right hip pinning. Risks of surgery include bleeding, infection, injury to arteries, nerves or blood vessels, avascular necrosis, painful hardware, need for hip replacement as well as medical complications including blood clot, stroke, heart attack and . All questions are answered. I will plan on surgery today. The patient will be placed on pharmaceutical DVT prophylaxis postoperatively. He will also be placed on calcium and vitamin D supplementation. A mid-level provider in my office, nurse practitioner or PA, may see this patient on a follow-up basis and continue to implement the objective of this plan including: Starting or adjusting medications, injections of muscle, tendon, bursa or joints, cast application, orthotic or brace application, physical therapy, further radiographic studies including x-ray, MRI, CT, ultrasounds or bone scan, vascular studies, neurologic studies, or other specialist consultations, and proceeding with surgical management as appropriate. MD YOUSUF Daniel/ELEONORA , 09:18 AM , 09:42 AM
[2018-01-14] MEDS ORDERED: MIDAZOLAM HCL 2 MG/2 ML VIAL ONE (09:49)
--- NOTE | 2018-01-14 10:08 | RADRPT ---
EXAM DATE/TIME: 01/14/2018 09:01 [facility] COMPARISON: HIP RIGHT (AP&LAT 2/3VWS) W AP PELVIS, January 13, 2018, 17:36. INDICATIONS : Right hip pinning. MEDICAL HISTORY : None. SURGICAL HISTORY : None. ENCOUNTER: Subsequent ACUITY: 1 day PAIN SCORE: Non-responsive. LOCATION: Right Hip. FINDINGS: 2 intraoperative fluoroscopic views of the right femur are obtained. There are 3 threaded pins milo sing the right proximal femur, mildly impacted subcapital femoral neck fracture. CONCLUSION: Postsurgical changes right proximal femur. Brady Rabago MD on January 14, 2018 at 10:04 Board Certified Radiologist. This report was verified electronically.
[2018-01-14] MEDS ORDERED: SODIUM CHLORIDE 0.9% FLUSH 10 ML FLUSH IV FLUSH PRN (10:15)
[2018-01-14] MEDS ORDERED: NITROGLYCERIN 2% OINT 1 GM PACKET TOP PRN (10:15)
--- NOTE | 2018-01-14 10:24 | HHI.PR ---
Addendum to Inpatient Note Addendum Reason: Additional Documentation Additional Information S: Pt seen and examined in PACU, post op. There was concern during operation that pt may have had a cardiac event. He was hypotensive with elevated heart rate. He was to followup with cardiology as an outpt due to syncopal episode in 09/2017, but has not done so. He currently denies chest pain, shortness of breath. He endorses mild discomfort of right hip from surgery. Otherwise he states he is doing alright and asks for his . O: Gen: wn, wd, in no acute distress Cardio: HR 106, regular rhythm, no murmurs rubs or gallops Lungs: Anterior lung rodrigues auscultated, good air movement, no wheezes rales or rhonchi appreciated Abdomen: Nontender, nondistended MSK: Bandage over right lateral hip from right hip pinning, 2+ DP, no significant lower extremity edema Psyc: Normal affect, insight and judgment intact A/P: 1) SVT and hypotension during surgery -Will rule out ACS -Troponin, CK-MB, EKGs every 6 hours 3 -Telemetry -Cardiology consulted, appreciate recommendations -Pt to go to [facility] for further monitoring Abilio Lindsay MD R3 Jan 14, 2018 10:24
[2018-01-14] MEDS ORDERED: NITROGLYCERIN 0.4 MG SL 25 TABS/BTL SL PRN (10:30)
[2018-01-14] MEDS ORDERED: MORPHINE SULFATE 2 MG/ML SYRINGE IV PUSH PRN (10:45)
[2018-01-14] MEDS: ACETAMINOPHEN/HYDROcodone 325 MG/5 MG TAB PO PRN ×3 (11:29→21:36)
[2018-01-14 12:10] LABS: TROPONIN I LESS THAN 0.02 NG/ML (0.02-0.05)
--- NOTE | 2018-01-14 12:49 | HHI.HP ---
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 Kapadia with PMH of HTN, hyperlipidemia, and arthritis who presented to [place] ED due to inability to ambulate after fall injury resulting in femoral neck fracture. Mr. Edward reports that he injured his right leg after a fall injury in his yard while attempting to help his daughter with yard work. Patient slipped while wearing sandals resulting in a fall where he landed on his side. Patient was unable to get up for 15 minutes after the fall, but was then able to ambulate indoors while limping. Patient was carrying a chain saw at the time of the fall but did not cut himself with it. Patient does not report any loss of consciousness or head injury with fall. Overnight, patient laid in bed and was unable to ambulate/get out of bed. Due to this, patient sought care today per his . Patient does not report symptoms at this time with exception of chronic bilateral lower extremity numbness/tingling. No recent changes. Patient did not report headache, vision changes, shortness of breath, chest pain , abnormal urination, or abnormal bowel movements. Supplemental interviewing after EMR Review: Patient denies any chest pain; he has not had this for several months. He did not follow-up with Cardiology as instructed by Dr. Kapadia 09/2017. Patient has not had any additional syncope since 09/2017. Patient has had chronic right knee pain; he [facility] about [facility] to right knee. There was concern during his operation that pt may have had a cardiac event. He was hypotensive with elevated heart rate. He was to followup with cardiology as an outpt due to syncopal episode in 09/2017, but has not done so. He currently denies chest pain, shortness of breath. He endorses mild discomfort of right hip from surgery. Otherwise he stated he is doing alright and has been comfortable in the surgical intensive care unit. On obtaining further history, Anesthesia had a history of a flail chest and possible cardiac contusion though I am unable to verify this by records at all. During the surgery he evidently had some low BPs and received multiple meds including epinephrine, phenylephedrine, some beta gilberto etc. However, on looking at the records do not see that he had severe hypotension. He is likely dehydrated as he was out working in the heat when he fell as well as not drinking much fluid since then. Perhaps he had some element of hypotension from dehydration during anesthesia. As regards his syncope/presyncope, he stated that he only has problems when he is out working in the heat. He starts to feel overheated and sweaty and lightheaded "almost like a heat stroke". This goes away if he jumps in the pools and cools off, all his sxs resolve. He denies any episodes of sudden or unpredictable syncope and did not have syncope resulting in a fall for his hip fracture. Review of Systems Other GENERAL: no apparent distress. SKIN: No rashes, ecchymoses or lesions. Cool and dry. Tattoos on skin HEAD: Atraumatic. Normocephalic. No temporal or scalp tenderness.Constitutional : DENIES: Fever, Chills Eyes: COMPLAINS OF: Blurred vision (chronic), Vision loss (chronic) Ears, nose, mouth, throat: DENIES: Running Nose, Sinus Pain Respiratory: DENIES: Cough, Shortness of breath Gastrointestinal: DENIES: Abdominal pain, Constipation Genitourinary: DENIES: Urgency, Dysuria Musculoskeletal: COMPLAINS OF: Joint pain, DENIES: Back pain Integumentary: DENIES: Abnormal pigmentation Neurologic: DENIES: Headache, Localized weakness Psychiatric: DENIES: Anxiety, Confusion Past Family Social History Past Medical History Per Patient HTN HLP Arthritis Stroke R eye Per EMR Hypertension Gout Kidney stones Legally blind Osteoarthritis in knees and neck Inguinal hernia Varicose veins Tinnitus HLD Depression GERD Kidney disease PTSD, [employer] War vet: refuses psychiatry and counseling referrals Syncopal episodes (reported to me on 10/10/17, working up) Chest pains with exertion (reported to me on 10/10/17, referred to cardiology ) Past Surgical History Per Patient 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 Alcohol: Occasional Drug use: none Live with Disabled Physical Exam Vital Signs Vital Signs Date Time Temp Pulse Resp B/P (MAP) Pulse Ox O2 Delivery O2 Flow Rate FiO2 01/14/18 10:10 97.7 106 16 105/63 (77) 100 Nasal Cannula 2 01/14/18 10:00 104 16 110/67 (81) 100 Nasal Cannula 2 01/14/18 09:45 106 16 107/63 (78) 100 Nasal Cannula 2 01/14/18 09:30 109 16 114/66 (82) 97 Nasal Cannula 3 01/14/18 09:19 97.7 107 16 111/59 (76) 92 Nasal Cannula 3 01/14/18 05:40 98.5 70 18 129/77 (94) 92 01/14/18 04:19 21 01/14/18 00:00 98.2 73 20 80/ 92 01/13/18 21:13 98.3 68 20 127/77 (94) 96 01/13/18 21:05 01/13/18 19:43 80 14 96 Room Air 01/13/18 19:42 78 14 128/88 (101) 96 Room Air 01/13/18 17:07 98.4 90 16 135/77 (96) 94 Physical Exam GENERAL: This is a well-nourished, well-developed patient, in no apparent distress resting comfortably post op EYES: Pupils equal round and reactive. Extraocular motions grossly intact. NECK: No appreciated lymphadenopathy CARDIOVASCULAR: Regular rate and rhythm without murmurs. Normal peripheral perfusion RESPIRATORY: Clear to auscultation. Breath sounds equal bilaterally. No wheezes to auscultation GASTROINTESTINAL: Abdomen soft, non-tender, nondistended. No hepato-splenomegaly , or palpable masses. No guarding. MUSCULOSKELETAL: Extremities without edema. No calf tenderness. Strength and ROM of lower extremities deferred due to RLE pain NEUROLOGICAL: Awake and alert. Cranial nerves grossly intact. Peripheral motor and sensory function grossly normal. Normal speech. SKIN: No rashes, ecchymoses or lesions. Cool and dry. HEAD: Atraumatic. Normocephalic. No temporal or scalp tenderness. Laboratory Laboratory Tests Test 01/13/18 18:52 01/14/18 04:25 01/14/18 11:15 White Blood Count 11.1 9.4 Red Blood Count 5.24 5.03 Hemoglobin 15.7 15.2 Hematocrit 47.1 45.1 Mean Corpuscular Volume 89.9 89.8 Mean Corpuscular Hemoglobin 30.0 30.2 Mean Corpuscular Hemoglobin Concent 33.4 33.6 Red Cell Distribution Width 14.9 15.4 Platelet Count 149 136 Mean Platelet Volume 7.9 8.3 Neutrophils (%) (Auto) 78.5 76.8 Lymphocytes (%) (Auto) 10.2 10.7 Monocytes (%) (Auto) 6.5 6.9 Eosinophils (%) (Auto) 4.3 5.0 Basophils (%) (Auto) 0.5 0.6 Neutrophils # (Auto) 8.7 7.2 Lymphocytes # (Auto) 1.1 1.0 Monocytes # (Auto) 0.7 0.7 Eosinophils # (Auto) 0.5 0.5 Basophils # (Auto) 0.1 0.1 CBC Comment DIFF FINAL DIFF FINAL Differential Comment Prothrombin Time 10.0 Prothromb Time International Ratio 1.0 Activated Partial Thromboplast Time 27.3 Blood Urea Nitrogen 28 29 Creatinine 1.27 1.09 Random Glucose 102 102 Total Protein 7.5 Albumin 3.9 Calcium Level 9.2 9.0 Alkaline Phosphatase 70 Aspartate Amino Transf (AST/SGOT) 27 Alanine Aminotransferase (ALT/SGPT) 38 Total Bilirubin 0.5 Sodium Level 142 142 Potassium Level 4.0 4.0 Chloride Level 108 108 Carbon Dioxide Level 24.6 24.0 Anion Gap 9 10 Estimat Glomerular Filtration Rate 56 67 25-Hydroxy Vitamin D Total 21.4 Total Creatine Kinase 73 Troponin I LESS THAN 0.02 Result Diagram: 01/14/185 01/14/18 0425 Imaging Last Impressions Chest X-Ray 01/13/18 8132 Signed Impressions: Service Date/Time: Saturday, January 13, 2018 19:01 - CONCLUSION: No acute disease. Sukhi Smith MD Knee X-Ray 01/13/18 1716 Signed Impressions: Service Date/Time: Saturday, January 13, 2018 17:39 - CONCLUSION: 1. Degenerative changes. 2. Questionable fracture lateral tibial plateau. Sukhi Smith MD Elbow X-Ray 01/13/18 1716 Signed Impressions: Service Date/Time: Saturday, January 13, 2018 17:45 - CONCLUSION: Degenerative changes without fracture. Sukhi Smith MD Hip and Pelvis X-Ray 01/13/18 0000 Signed Impressions: Service Date/Time: Saturday, January 13, 2018 17:36 - CONCLUSION: Nondisplaced fracture right femoral neck. MD Darrell Ozuna VTE Risk Assessment Zhengrinalicia VTE Risk Assessment: Mod/High Risk (score >= 2) VTE Pharm Contraindication: planned surgical intevention; will initiate post-op Zhengrini Risk Assessment Model Point Value = 1 Point Value = 2 Point Value = 3 Point Value = 5 Age 41-60 Minor surgery BMI > 25 kg/m2 Swollen legs Varicose veins or History of unexplained or recurrent spontaneous Oral contraceptives or hormone replacement Sepsis (< 1 month) Serious lung disease, including pneumonia (< 1 month) Abnormal pulmonary function Acute myocardial infarction Congestive heart failure (< 1 month) History of inflammatory bowel disease Medical patient at bed rest Age 61-74 Arthroscopic surgery Major open surgery (> 45 min) Laparoscopic surgery (> 45 min) Malignancy Confined to bed (> 72 hours) Immobilizing plaster cast Central venous access Age >= 75 History of VTE Family history of VTE Factor V Leiden Prothrombin [id number] Lupus anticoagulant Anticardiolipin antibodies Elevated serum homocysteine Heparin-induced thrombocytopenia Other congenital or acquired thrombophilia Stroke (< 1 month) Elective arthroplasty Hip, pelvis, or leg fracture Acute spinal cord injury (< 1 month) Prophylaxis Regimen Total Risk Factor Score Risk Level Prophylaxis Regimen 0-1 Low Early ambulation 2 Moderate Order ONE of the following: *Sequential Compression Device (SCD) *Heparin 5000 units SQ BID 3-4 Higher Order ONE of the following medications: *Heparin 5000 units SQ TID *Enoxaparin/Lovenox 40 mg SQ daily (WT < 150 kg, CrCl > 30 mL/min) *Enoxaparin/Lovenox 30 mg SQ daily (WT < 150 kg, CrCl > 10-29 mL/min) *Enoxaparin/Lovenox 30 mg SQ BID (WT < 150 kg, CrCl > 30 mL/min) AND/OR *Sequential Compression Device (SCD) 5 or more Highest Order ONE of the following medications: *Heparin 5000 units SQ TID (Preferred with Epidurals) *Enoxaparin/Lovenox 40 mg SQ daily (WT < 150 kg, CrCl > 30 mL/min) *Enoxaparin/Lovenox 30 mg SQ daily (WT < 150 kg, CrCl > 10-29 mL/min) *Enoxaparin/Lovenox 30 mg SQ BID (WT < 150 kg, CrCl > 30 mL/min) AND *Sequential Compression Device (SCD) Assessment and Plan Assessment and Plan Mr. Edward is a 72 yo male with: Problem List: (1) Fall with injury ICD Codes: W19.XXXA - Unspecified fall, initial encounter Status: Acute Plan: Impression: Fall injury yesterday resulting in inability to ambulate. Hip /Pelvic XR- nondisplaced fracture of right femoral neck. . Knee XR- degenerative changes. Questionable fracture of lateral tibial plateau -Preoperative surgical risk -Impression: Prior history of tobacco abuse; CXR without acute disease. Preoperative electrolytes wnl. CBC with mild leukocytosis presumed to be reactive. ECG today without changes from priors. Per EMR review, patient had reported chest pain and syncope to Dr. Kapadia 09/2017 and cardiology referral was advised; he has had no symptoms since that time and did not follow-up. Since no symptoms concerning for angina or other vascular disease, patient does not seem to have any active cardiac disease -Will continue Statin and ASA 81 perioperatively -Pain control (on home Tylenol/Codeine) -[place] 5/325 for pain 1-5 -[place] 10/325 for pain 6-10 -Morphine 3mg IV for BRK pain -Management per Orthopedic Surgery -Per discussion with ED and Orthopedic team; patient had surgical repair of femoral neck tomorrow -*will defer further imaging of tibial plateau to Orthopedic surgery; this may be chronic due to patient's discussions regarding [facility] previously -NPO after midnight, now can eat (2) Hypotension during surgery ICD Codes: I97.88 - Other intraoperative complications of the circulatory system, not elsewhere classified; I95.89 - Other hypotension Status: Acute Plan: He was thought to have a cardiac event during surgery as he was hypotensive and tachycardic. unclear exactly what happened but he has had a cardiac workup for [place] initiated SVT and hypotension during surgery -Will rule out ACS -Troponin, CK-MB, EKGs every 6 hours 3 -Telemetry -Cardiology consulted, appreciate recommendations -Pt to go to [facility] for further monitoring see hpi for more history on the syncope and cardiac issues. will have an echo, troponins but suspect he needs a fluid bolus. (3) HTN (hypertension) ICD Codes: I10 - Essential (primary) hypertension Plan: Impression: Normotensive in ED; on home HCTZ and Lisinopril. -Continue HCTZ 12.5mg daily -Continue Lisinopril 40mg daily -Will add PRN Hydralazine for SBP >180/DBP >100 (4) BPH with obstruction/lower urinary tract symptoms ICD Codes: N40.1 - Enlarged prostate with lower urinary tract symptoms; N13.8 - Other obstructive and reflux uropathy Status: Acute Plan: Impression: On home Tamsulosin 0.4mg HS -Continue home Tamsulosin (5) Depression ICD Codes: F32.9 - Major depressive disorder, single episode, unspecified Status: Chronic Plan: Impression: Controlled at this time -Continue home Fluoxetine (6) Gout ICD Codes: M10.9 - Gout, unspecified Status: Acute Plan: -Continue home Allopurinol (7) DVT Prophylaxis Status: Acute Plan: -Will plan to initiate DVT PPX post-operatively (8) Fluids, Electrolytes, and Nutrition Status: Acute Plan: Fluids: will give bolus, no history of CHF Electrolytes: metabolic panel reassuring on admission Nutrition: Regular diet Problem Qualifiers (1) Fall with injury: Qualified Codes: W19.XXXA - Unspecified fall, initial encounter (2) HTN (hypertension): Qualified Codes: I10 - Essential (primary) hypertension (3) Depression: Qualified Codes: F32.9 - Major depressive disorder, single episode, unspecified (4) Gout: Qualified Codes: M10.9 - Gout, unspecified Jennifer Cabral MD Jan 14, 2018 12:49
[2018-01-14] MEDS ORDERED: SODIUM CHLOR 0.45% 1000 ML INJ 1,000 ML IV ONE (14:00)
--- NOTE | 2018-01-14 14:09 | EKG ---
Date Performed: 01/14/2018 Time Performed: 11:17:48 PTAGE: 72 years EKG: Sinus rhythm . Possible Inferior infarct - age undetermined Abnormal ECG PREVIOUS TRACING : 01/14/2018 09.31 Compared to previous tracing, rate has decreased DOCTOR: Joey Wilder Interpretating Date/Time 01/14/2018 14:07:53
--- NOTE | 2018-01-14 14:13 | EKG ---
Date Performed: 01/14/2018 Time Performed: 09:31:59 PTAGE: 72 years EKG: SINUS TACHYCARDIA POSSIBLE OLD INFERIOR INFARCTION ABNORMAL ECG PREVIOUS TRACING : 01/13/2018 19.50 Since the previous tracing, possible Q wave now noted in aV F, previously just lead 3 DOCTOR: Joey Wilder Interpretating Date/Time 01/14/2018 14:11:13
[2018-01-14 17:59] LABS: TROPONIN I LESS THAN 0.02 NG/ML (0.02-0.05)
[2018-01-14] MEDS: PRAVASTATIN SOD 80 MG TAB PO SCH (20:45)
[2018-01-14] MEDS: ENOXAPARIN SODIUM 30 MG/0.3 ML SYRINGE SQ SCH (20:45)
[2018-01-14] MEDS: TAMSULOSIN HCL 0.4 MG CAP PO SCH (20:45)
[2018-01-14] MEDS: DOCUSATE SODIUM 50 MG/SENNA 8.6 MG TAB PO SCH (20:45)
[2018-01-14] MEDS: SODIUM CHLORIDE 0.9% FLUSH 10 ML FLUSH IV FLUSH SCH (20:45)
[2018-01-14 23:02] LABS: CHOLESTEROL 178 MG/DL (120-200); TRIGLYCERIDES 195 MG/DL (42-150)
[2018-01-14 23:10] LABS: CHOLESTEROL/ HDL RATIO 4.59 RATIO; HDL CHOLESTEROL 38.7 MG/DL (40.0-60.0); LDL CHOLESTEROL 100 MG/DL (0-99); TROPONIN I LESS THAN 0.02 NG/ML (0.02-0.05)
[2018-01-15] VITALS (13 sets, daily range): BP systolic 105–134; BP diastolic 61–80; PULSE 74–98; RESP 17–24; TEMP 97.7–99.3; O2SAT 96–100
[2018-01-15] MEDS: SODIUM CHLOR 0.9% 1000 ML INJ 1,000 ML IV SCH ×3 (00:15→20:15)
[2018-01-15] MEDS: ACETAMINOPHEN/HYDROcodone 325 MG/5 MG TAB PO PRN ×4 (04:12→20:18)
[2018-01-15 05:34] LABS: AUTOMATED NEUTROPHIL # 6.6 TH/MM3 (1.8-7.7); BASOPHIL % 0.4 % (0.0-2.0); EOSINOPHIL # 0.4 TH/MM3 (0-0.4); EOSINOPHIL % 4.9 % (0.0-4.0); HEMATOCRIT 41.9 % (39.0-51.0); HEMOGLOBIN 14.2 GM/DL (13.0-17.0); LYMPHOCYTE # 1.1 TH/MM3 (1.0-4.8); MEAN CELL VOLUME 89.4 FL (80.0-100.0); MEAN CORPUSCULAR HEMOGLOBIN 30.2 PG (27.0-34.0); MEAN CORPUSCULAR HGB CONC 33.8 % (32.0-36.0); MEAN PLATELET VOLUME 8.2 FL (7.0-11.0); MONO % 7.4 % (0.0-8.0); MONOCYTE # 0.6 TH/MM3 (0-0.9); NEUT % 75.3 % (16.0-70.0); PLATELET COUNT 138 TH/MM3 (150-450); RED BLOOD COUNT 4.69 MIL/MM3 (4.50-5.90); RED CELL DISTRIBUTION WIDTH 15.1 % (11.6-17.2); WHITE BLOOD COUNT 8.8 TH/MM3 (4.0-11.0)
[2018-01-15 05:39] LABS: BICARBONATE 23.8 MEQ/L (21.0-32.0); CALCIUM 8.7 MG/DL (8.5-10.1); CREATININE 1.05 MG/DL (0.60-1.30)
--- NOTE | 2018-01-15 07:08 | PD.ORT.PN ---
Subjective Subjective Remarks POD 1 s/p perc pinning of right hip resting comfortably. no complaints. no changes Objective Vitals Vital Signs Date Time Temp Pulse Resp B/P (MAP) Pulse Ox O2 Delivery O2 Flow Rate FiO2 01/15/18 06:06 86 01/15/18 06:00 86 01/15/18 04:00 99.3 82 21 106/61 (76) 98 01/15/18 04:00 85 01/15/18 02:00 85 01/15/18 00:00 74 01/15/18 00:00 98.9 98 18 105/62 (76) 98 01/14/18 22:00 86 01/14/18 20:00 98.7 92 19 121/89 (100) 100 01/14/18 20:00 78 01/14/18 20:00 99 Nasal Cannula 3.00 01/14/18 18:00 72 01/14/18 16:30 98.2 86 35 127/63 (84) 100 01/14/18 16:00 86 01/14/18 15:30 99 Nasal Cannula 3.00 01/14/18 15:00 68 01/14/18 14:00 84 01/14/18 12:30 98.5 86 21 103/63 (76) 100 01/14/18 12:00 86 01/14/18 10:10 97.7 106 16 105/63 (77) 100 Nasal Cannula 2 01/14/18 10:00 104 16 110/67 (81) 100 Nasal Cannula 2 01/14/18 09:45 106 16 107/63 (78) 100 Nasal Cannula 2 01/14/18 09:30 109 16 114/66 (82) 97 Nasal Cannula 3 01/14/18 09:19 97.7 107 16 111/59 (76) 92 Nasal Cannula 3 I/O 01/14/18 01/14/18 01/14/18 01/15/18 01/15/18 01/15/18 07:00 15:00 23:00 07:00 15:00 23:00 Intake Total 2000 ml 480 ml 1400 ml Output Total 10 ml 250 ml 1000 ml Balance 1990 ml 230 ml 400 ml Intake Oral 480 ml 200 ml IV Total 1000 ml 1200 ml Other 1000 ml Output Urine Total 250 ml 1000 ml Estimated Blood Loss 10 ml # Bowel Movements 0 Result Diagram: 01/15/18 0401 01/15/18 0401 Imaging Last 72 hours Impressions Chest X-Ray 01/13/18 1827 Signed Impressions: Service Date/Time: Saturday, January 13, 2018 19:01 - CONCLUSION: No acute disease. Sukhi Smith MD Knee X-Ray 01/13/18 171 Signed Impressions: Service Date/Time: Saturday, January 13, 2018 17:39 - CONCLUSION: 1. Degenerative changes. 2. Questionable fracture lateral tibial plateau. Sukhi Smith MD Elbow X-Ray 01/13/18 171 Signed Impressions: Service Date/Time: Saturday, January 13, 2018 17:45 - CONCLUSION: Degenerative changes without fracture. Sukhi Smith MD Hip and Pelvis X-Ray 01/13/18 0000 Signed Impressions: Service Date/Time: Saturday, January 13, 2018 17:36 - CONCLUSION: Nondisplaced fracture right femoral neck. Sukhi Smith MD Last 24 hours Impressions Chest X-Ray 01/13/18 182 Signed Impressions: Service Date/Time: Saturday, January 13, 2018 19:01 - CONCLUSION: No acute disease. Sukhi Smith MD Knee X-Ray 01/13/181715 Signed Impressions: Service Date/Time: Saturday, January 13, 2018 17:39 - CONCLUSION: 1. Degenerative changes. 2. Questionable fracture lateral tibial plateau. Sukhi Smith MD Elbow X-Ray 01/13/18 171 Signed Impressions: Service Date/Time: Saturday, January 13, 2018 17:45 - CONCLUSION: Degenerative changes without fracture. Sukhi Smith MD Objective Remarks RLE: dressings clean and dry. intact. NVI Assessment & Plan Assessment and Plan 1) Valgus impacted femoral neck fracture status post percutaneous pinning of right hip POD 1 Toe-touch weightbearing right lower extremity No active leg lifts or quad sets Daily dressing changes in a POD 2 with Xeroform and [place] Lovenox Incentive spirometry Plan for follow-up x-rays and examination with Dr. Guerrero or PA in 2 weeks Tucker Vidal PA/Dental Chairside Assistant PA Jan 15, 2018 07:08
--- NOTE | 2018-01-15 08:14 | HHI.FPPN ---
Subjective Remarks Pt seen and examined this morning, POD#1, s/p right hip pinning. No acute events overnight. Vital signs have been stable. Pt denies chest pain, palpitations, shortness of breath, abdominal pain. He endorses a very mild discomfort of his right hip. No issues urinating, +flatus. He has not yet had a bowel movement, he is tolerating his diet. He reports feeling very well overall. He has no additional acute concerns. (Abilio Lindsay MD R3) Objective Vitals Vital Signs Date Time Temp Pulse Resp B/P (MAP) Pulse Ox O2 Delivery O2 Flow Rate FiO2 01/15/18 07:32 99 Nasal Cannula 3.00 01/15/18 06:06 86 01/15/18 06:00 86 01/15/18 04:00 99.3 82 21 106/61 (76) 98 01/15/18 04:00 85 01/15/18 02:00 85 01/15/18 00:00 74 01/15/18 00:00 98.9 98 18 105/62 (76) 98 01/14/18 22:00 86 01/14/18 20:00 98.7 92 19 121/89 (100) 100 01/14/18 20:00 78 01/14/18 20:00 99 Nasal Cannula 3.00 01/14/18 18:00 72 01/14/18 16:30 98.2 86 35 127/63 (84) 100 01/14/18 16:00 86 01/14/18 15:30 99 Nasal Cannula 3.00 01/14/18 15:00 68 01/14/18 14:00 84 01/14/18 12:30 98.5 86 21 103/63 (76) 100 01/14/18 12:00 86 01/14/18 10:10 97.7 106 16 105/63 (77) 100 Nasal Cannula 2 01/14/18 10:00 104 16 110/67 (81) 100 Nasal Cannula 2 01/14/18 09:45 106 16 107/63 (78) 100 Nasal Cannula 2 01/14/18 09:30 109 16 114/66 (82) 97 Nasal Cannula 3 01/14/18 09:19 97.7 107 16 111/59 (76) 92 Nasal Cannula 3 I/O 4/29/18 4/01/14/18 01/15/18 01/15/18 01/15/18 07:00 15:00 23:00 07:00 15:00 23:00 Intake Total 2000 ml 480 ml 1400 ml Output Total 10 ml 250 ml 1000 ml Balance 1990 ml 230 ml 400 ml Intake Oral 480 ml 200 ml IV Total 1000 ml 1200 ml Other 1000 ml Output Urine Total 250 ml 1000 ml Estimated Blood Loss 10 ml # Bowel Movements 0 (Abilio Lindsay MD R3) Result Diagram: 01/15/1840001/15/18400 Objective Remarks GENERAL: This is a well-nourished, well-developed patient, in no apparent distress resting comfortably SKIN: No rashes, ecchymoses or lesions. Cool and dry. HEAD: Atraumatic. Normocephalic. EYES: Pupils equal round and reactive. Extraocular motions grossly intact. NECK: No appreciated lymphadenopathy CARDIOVASCULAR: Regular rate and rhythm without murmurs. Normal peripheral perfusion RESPIRATORY: Clear to auscultation. Breath sounds equal bilaterally. No wheezes to auscultation GASTROINTESTINAL: Abdomen soft, non-tender, nondistended. No palpable masses. No guarding. MUSCULOSKELETAL: Extremities without edema. No calf tenderness. NEUROLOGICAL: Awake and alert. Cranial nerves grossly intact. Normal speech. (Abilio Lindsay MD R3) A/P Assessment and Plan Mr. Edward is a 72 yo male admitted due to right femoral fracture who underwent surgery on 01/14. There was a concern that he may have had some type of cardiac event due to mild hypotension and tachycardia during surgery. ACS was ruled out, cardiology consulted. Vital sings have been stable and pt reports feeling significantly improved. Discharge Planning Anticipate discharge once pt has been cleared by orthopedics, cardiology and pt is clinically stable, likely 1-2 days. (Abilio Lindsay MD R3) Attending Attestation Patient seen and examined. Case reviewed and discussed with the resident team. Agree with plan of care as discussed with me and documented in the resident note. per nursing staff, he was very weak and not able to get around properly. his discharge home was held up for that reason as his is not able to lift him physically (Jennifer Cabral MD) Problem List: (1) Femoral neck fracture ICD Codes: S72.009A - Fracture of unspecified part of neck of unspecified femur , initial encounter for closed fracture Status: Acute Plan: Impression: Fall injury on the day prior to admission resulting in inability to ambulate. Hip/Pelvic XR- nondisplaced fracture of right femoral neck. . Knee XR- degenerative changes. -Pain control (on home Tylenol/Codeine) -[place] 5/325 for pain 3-10 -Morphine 3mg IV for BRK pain -Management per Orthopedic Surgery -POD #1, s/p pinning of right hip -Daily dressing changes History: -Preoperative surgical risk -Impression: Prior history of tobacco abuse; CXR without acute disease. Preoperative electrolytes wnl. CBC with mild leukocytosis presumed to be reactive. ECG today without changes from priors. Per EMR review, patient had reported chest pain and syncope to Dr. Kapadia 09/2017 and cardiology referral was advised; he has had no symptoms since that time and did not follow-up. Since no symptoms concerning for angina or other vascular disease, patient does not seem to have any active cardiac disease -Will continue Statin and ASA 81 perioperatively (2) Hypotension during surgery ICD Codes: I97.88 - Other intraoperative complications of the circulatory system, not elsewhere classified; I95.89 - Other hypotension Status: Acute Plan: He was thought to have a cardiac event during surgery as he was hypotensive and tachycardic. unclear exactly what happened but he has had a cardiac workup for MS initiated SVT and hypotension during surgery -ACS ruled out -Telemetry -Echo pending -Cardiology consulted, appreciate recommendations (3) HTN (hypertension) ICD Codes: I10 - Essential (primary) hypertension Plan: Impression: Normotensive in ED; on home HCTZ and Lisinopril. -Hold home HCTZ 12.5mg due to concern for dehydration -Continue Lisinopril 40mg daily -Will add PRN Hydralazine for SBP >180/DBP >100 (4) BPH with obstruction/lower urinary tract symptoms ICD Codes: N40.1 - Enlarged prostate with lower urinary tract symptoms; N13.8 - Other obstructive and reflux uropathy Status: Acute Plan: Impression: On home Tamsulosin 0.4mg HS -Continue home Tamsulosin -Voiding appropriately (5) Depression ICD Codes: F32.9 - Major depressive disorder, single episode, unspecified Status: Chronic Plan: Impression: Controlled at this time -Continue home Fluoxetine (6) Gout ICD Codes: M10.9 - Gout, unspecified Status: Acute Plan: -Continue home Allopurinol (7) DVT Prophylaxis Status: Acute Plan: -Lovenox (8) Fluids, Electrolytes, and Nutrition Status: Acute Plan: Fluids: Oral hydration Electrolytes: metabolic panel reassuring on admission Nutrition: Regular diet (Abilio Lindsay MD R3) Problem Qualifiers (1) Femoral neck fracture: Qualified Codes: S72.001A - Fracture of unspecified part of neck of right femur , initial encounter for closed fracture (2) HTN (hypertension): Qualified Codes: I10 - Essential (primary) hypertension (3) Depression: Qualified Codes: F32.9 - Major depressive disorder, single episode, unspecified (4) Gout: Qualified Codes: M10.9 - Gout, unspecified Abilio Lindsay MD R3 Jan 15, 2018 08:14 Jennifer Cabral MD January 16, 2018 10:17
--- NOTE | 2018-01-15 08:25 | MB ---
cc: Joey Wilder DO DATE: 01/14/2018 REASON FOR CONSULTATION: Tachycardia/hypotension postoperatively. HISTORY OF PRESENT ILLNESS: Sunil Edward is a pleasant 72-year-old male who presented to [facility] Emergency Room on 01/13/2018 due to inability to ambulate after a fall. Apparently, the patient was attempting to help his daughter with yard work yesterday. He was wearing sandals at the time and had a mechanical fall, landing on his right hip. He was unable to get up for about 15 minutes after the fall and then was only able to ambulate indoors while limping. He denies any other injuries during the fall, including hitting his head. After lying down for bed, the patient was unable to get up out of bed or ambulate. Because of this, as well as the pain in his hip, he came to the emergency room the next day. Upon arrival, he was found to have a right hip fracture and was taken for surgery this morning. I was called and consulted because there was a concern during his operation because he was hypotensive and tachycardic. Apparently during the operation, his blood pressure was mildly low and his heart rates were rate around 100, although difficult to ascertain, apparently Dr. Cabral had discussed with anesthesia and during the case, the patient required epinephrine, phenylephrine and some beta blockers. On reviewing the records, overall, it does not appear that he was significantly hypotensive with blood pressures of 90/60. In seeing the patient, he is currently hemodynamically stable, without chest pain or shortness of breath while sitting in bed. Overall, he has had no episodes of chest pain, shortness of breath or lightheadedness. He did have what he deemed a few syncopal episodes over the years. These seem to come on when it is hot outside and he is doing work and he sweats a lot. He states that when he gets this way, if he jumps in the pool and cools off, he feels better. Overall, he denies any episodes of chest pain, shortness of breath or palpitation with the work that he does. PAST MEDICAL HISTORY: 1. Hypertension. 2. Hyperlipidemia. 3. Arthritis. 4. Gout. 5. Kidney stones. 6. Legally blind. 7. Osteoarthritis. 8. GERD. PAST SURGICAL HISTORY: 1. Testicular torsion. 2. 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 3. Laser eye surgery. 4. Hernia surgery (age 19). 5. Kidney stone removal x 6. ALLERGIES: 1. SULFA. 2. PENICILLIN. MEDICATIONS: 1. Flomax 0.4 mg every night. 2. Zocor 40 mg every night. 3. Lisinopril 40 mg every night. 4. Aspirin 81 mg daily. 5. Fluoxetine 40 mg daily. 6. Hydrochlorothiazide 12.5 mg daily. 7. Ergocalciferol 50,000 units every 7 days. 8. Allopurinol 300 mg daily. FAMILY HISTORY: Denies sudden cardiac within the family. Apparently, some of his family had early cardiovascular disease in their 40s and 50s. SOCIAL HISTORY: The patient smoked 1-1/2 packs per day, quitting 20 years ago. Occasionally drinks alcohol. Denies drugs. REVIEW OF SYSTEMS: Fourteen systems were reviewed including osteopathic pertinent positives and negatives above, otherwise negative. PHYSICAL EXAMINATION: VITAL SIGNS: Temperature 98.5, heart rate 86, blood pressure 103/63, respirations 21, pulse oximetry 100% on 2 liters. GENERAL: The patient appears well, in no acute distress. Alert, awake and oriented x 3. HEENT: Extraocular muscles intact. Mucous membranes moist. NECK: Supple. No JVD at 45 degrees. No carotid bruits heard bilaterally. Carotid upstroke is brisk in nature. HEART: Regular rate and rhythm. Positive first and second heart sounds, with no murmurs, gallops or rubs. LUNGS: Clear to auscultation bilaterally. No wheezes, rales or rhonchi. ABDOMEN: Soft, nontender, nondistended. No organomegaly noted. EXTREMITIES: Show no clubbing, cyanosis or edema. Right femoral hip with bandage. NEUROLOGIC: No focal deficits. SKIN: Warm, dry and intact. OSTEOPATHIC: No kyphoscoliosis, lordosis or paraspinal tender points. LABORATORY DATA: Hemoglobin 15.2, hematocrit 45.1, platelets 136, potassium 4.0, BUN 29, creatinine 1.09. Troponin less than 0.02. ELECTROCARDIOGRAM (01/14/2018 AT 11:17): Sinus rhythm, possible inferior infarct, age undetermined. IMPRESSION: 1. Mechanical fall leading to right hip fracture. 2. Status post right hip pinning for right hip fracture. 3. Hypotension and tachycardia during the operation. 4. History of syncope. 5. Hypertension. 6. Hyperlipidemia. RECOMMENDATIONS: 1. Mr. Edward appeared to be mildly hypotensive and tachycardic during the case. No rhythm strips are for review, although it sounds like he was just in sinus tachycardia, which would go with his overall hypotension and overall sickness. 2. He was mildly hypotensive during the case and this most likely speaks to his overall dehydrated shape. 3. EKG shows no real significant changes, although there is somewhat more of a Q-wave in lead 3, which is nonspecific. Currently, the patient is asymptomatic, without chest pain or shortness of breath. 4. We will continue to trend the triglycerides for 2-3 more sets to rule out ischemia during the case. 5. We will check a 2D echo to look at his overall left ventricular function, cardiac structure and possible valvulopathies. 6. If everything is stable, on discharge, he should followup with cardiology for long-term rhythm analysis with either Holter monitor or loop recorder. 7. Case was discussed with Dr. Cabral. 8. Due to his episodes of syncope outpatient while getting what appears to be further dehydrated, I would most likely avoid his hydrochlorothiazide even on discharge. Thank you for allowing me to see Sunil Edward. If there are any questions, please do not hesitate to call. DO MOOK Stanley/ALIDA , 04:16 PM , 05:29 PM
[2018-01-15] MEDS: DOCUSATE SODIUM 50 MG/SENNA 8.6 MG TAB PO SCH ×2 (09:48→20:18)
[2018-01-15] MEDS: LISINOPRIL 20 MG TAB PO SCH (09:49)
[2018-01-15] MEDS: ALLOPURINOL 300 MG TAB PO SCH (09:50)
[2018-01-15] MEDS: CHOLECALCIFEROL (VIT D3) 5000 UNIT CAP PO SCH (09:50)
[2018-01-15] MEDS: ASPIRIN EC 81 MG TABEC PO SCH (09:50)
[2018-01-15] MEDS: SODIUM CHLORIDE 0.9% FLUSH 10 ML FLUSH IV FLUSH SCH ×2 (09:53→20:21)
[2018-01-15] MEDS: FLUoxetine HCL 20 MG CAP PO SCH (10:30)
--- NOTE | 2018-01-15 12:22 | PD.CARD.PN ---
Subjective Subjective Remarks No events overnight No complaints Objective Medications Current Medications Medications (Trade) Dose Ordered Sig/Hugo Route Start Time Stop Time Status Last Admin (Tylenol) 650 mg Q4H PRN PO 01/13/18 20:30 (Zofran Inj) 4 mg Q6H PRN IVP 01/13/18 20:30 (Narcan Inj) 0.4 mg UNSCH PRN IV PUSH 01/13/18 20:30 (Daria-Colace) 1 tab BID PO 01/13/18 21:00 01/15/18 09:48 (Dulcolax Supp) 10 mg DAILY PRN RECTAL 01/13/18 20:30 (Zyloprim) 300 mg DAILY PO 01/14/18 09:00 01/15/18 09:50 (Ecotrin Ec) 81 mg DAILY PO 01/14/18 09:00 01/15/18 09:50 (Microzide) 12.5 mg DAILY PO 01/14/18 09:00 Future Hold (Flomax) 0.4 mg HS PO 01/13/18 21:00 01/14/18 20:45 (Prinivil) 40 mg DAILY PO 01/14/18 09:00 01/15/18 09:49 (Pravachol) 80 mg HS PO 01/13/18 21:00 01/14/18 20:45 (Morphine Inj) 3 mg Q3H PRN IV PUSH 01/13/18 21:15 01/14/18 03:00 (Apresoline) 10 mg Q8HR PRN PO 01/13/18 21:45 Lactated Ringer's 1,000 ml @ 30 mls/hr Q24H PRN IV 01/14/18 01:15 01/17/18 01:14 01/14/18 07:02 Sodium Chloride 500 ml @ 30 mls/hr [id number] PRN IV 01/14/18 01:15 01/17/18 01:14 (Lopressor) 25 mg LAB ANIMAL TECHNICIAN PRN PO 01/14/18 01:15 01/17/18 01:14 (Betadine 5% Antisepsis Kit) 1 applic LAB ANIMAL TECHNICIAN PRN EACH NARE 01/14/18 01:15 01/17/18 01:14 (Chlorhexidine 2% Cloth) 3 pack LAB ANIMAL TECHNICIAN PRN TOPICAL 01/14/18 01:15 01/17/18 01:14 Sodium Chloride 1,000 ml @ 100 mls/hr Q10H IV 01/14/18 04:15 01/15/18 00:15 (Lovenox Inj) 30 mg Q24H SQ 01/14/18 21:30 01/14/18 20:45 ([place] 5-325 Mg) 1 tab Q4H PRN PO 01/14/18 09:15 01/15/18 09:48 (Morphine Inj) 3 mg Q3H PRN IV PUSH 01/14/18 09:15 (Vitamin D3) 5,000 units DAILY PO 01/15/18 09:00 01/15/18 09:50 (NS Flush) 2 ml BID IV FLUSH 01/14/18 21:00 01/15/18 09:53 (NS Flush) 2 ml UNSCH PRN IV FLUSH 01/14/18 10:15 (Nitrostat Sl) 0.4 mg Q5M PRN SL 01/14/18 10:30 (PROzac) 40 mg DAILY PO 01/15/18 10:30 Vital Signs / I&O Vital Signs Date Time Temp Pulse Resp B/P (MAP) Pulse Ox O2 Delivery O2 Flow Rate FiO2 01/15/18 10:48 20 01/15/18 10:00 89 01/15/18 08:30 98.2 77 24 117/64 (81) 100 01/15/18 08:00 77 01/15/18 07:32 99 Nasal Cannula 3.00 01/15/18 06:06 86 01/15/18 06:00 86 01/15/18 04:00 99.3 82 21 106/61 (76) 98 01/15/18 04:00 85 01/15/18 02:00 85 01/15/18 00:00 74 01/15/18 00:00 98.9 98 18 105/62 (76) 98 01/14/18 22:00 86 01/14/18 20:00 98.7 92 19 121/89 (100) 100 01/14/18 20:00 78 01/14/18 20:00 99 Nasal Cannula 3.00 01/14/18 18:00 72 01/14/18 16:30 98.2 86 35 127/63 (84) 100 01/14/18 16:00 86 01/14/18 15:30 99 Nasal Cannula 3.00 01/14/18 15:00 68 01/14/18 14:00 84 01/14/18 12:30 98.5 86 21 103/63 76) 100 I/O 01/14/18 01/14/18 01/14/18 01/15/18 01/15/18 01/15/18 07:00 15:00 23:00 07:00 15:00 23:00 Intake Total 2000 ml 480 ml 1400 ml Output Total 10 ml 250 ml 1000 ml Balance 1990 ml 230 ml 400 ml Intake Oral 480 ml 200 ml IV Total 1000 ml 1200 ml Other 1000 ml Output Urine Total 250 ml 1000 ml Estimated Blood Loss 10 ml # Bowel Movements 0 Physical Exam GENERAL: NAD, AAOx3 SKIN: Warm and dry. HEAD: Atraumatic. Normocephalic. EYES: Pupils equal and round. No scleral icterus. No injection or drainage. ENT: No nasal bleeding or discharge. Mucous membranes pink and moist. NECK: Trachea midline. No JVD. CARDIOVASCULAR: Regular rate and rhythm. RESPIRATORY: No accessory muscle use. Clear to auscultation. Breath sounds equal bilaterally. GASTROINTESTINAL: Abdomen soft, non-tender, nondistended. Hepatic and splenic margins not palpable. MUSCULOSKELETAL: Extremities without clubbing, cyanosis, or edema. No obvious deformities. NEUROLOGICAL: Awake and alert. No obvious cranial nerve deficits. Motor grossly within normal limits. Five out of 5 muscle strength in the arms and legs. Normal speech. PSYCHIATRIC: Appropriate mood and affect; insight and judgment normal. Laboratory Laboratory Tests Test 01/14/18 17:03 01/14/18 22:30 01/15/18 04:01 Total Creatine Kinase 95 U/L 75 U/L Troponin I LESS THAN 0.02 NG/ML LESS THAN 0.02 NG/ML Triglycerides Level 195 MG/DL Cholesterol Level 178 MG/DL LDL Cholesterol 100 MG/DL HDL Cholesterol 38.7 MG/DL Cholesterol/HDL Ratio 4.59 RATIO Thyroid Stimulating Hormone 3rd Gen 0.728 uIU/ML White Blood Count 8.8 TH/MM3 Red Blood Count 4.69 MIL/MM3 Hemoglobin 14.2 GM/DL Hematocrit 41.9 % Mean Corpuscular Volume 89.4 FL Mean Corpuscular Hemoglobin 30.2 PG Mean Corpuscular Hemoglobin Concent 33.8 % Red Cell Distribution Width 15.1 % Platelet Count 138 TH/MM3 Mean Platelet Volume 8.2 FL Neutrophils (%) (Auto) 75.3 % Lymphocytes (%) (Auto) 12.0 % Monocytes (%) (Auto) 7.4 % Eosinophils (%) (Auto) 4.9 % Basophils (%) (Auto) 0.4 % Neutrophils # (Auto) 6.6 TH/MM3 Lymphocytes # (Auto) 1.1 TH/MM3 Monocytes # (Auto) 0.6 TH/MM3 Eosinophils # (Auto) 0.4 TH/MM3 Basophils # (Auto) 0.0 TH/MM3 CBC Comment DIFF FINAL Differential Comment Blood Urea Nitrogen 22 MG/DL Creatinine 1.05 MG/DL Random Glucose 101 MG/DL Calcium Level 8.7 MG/DL Sodium Level 140 MEQ/L Potassium Level 4.0 MEQ/L Chloride Level 107 MEQ/L Carbon Dioxide Level 23.8 MEQ/L Anion Gap 9 MEQ/L Estimat Glomerular Filtration Rate 70 ML/MIN Assessment and Plan Problem List: (1) Syncope ICD Codes: R55 - Syncope and collapse (2) Fall ICD Codes: W19.XXXA - Unspecified fall, initial encounter Status: Acute (3) Femoral neck fracture ICD Codes: S72.009A - Fracture of unspecified part of neck of unspecified femur , initial encounter for closed fracture Status: Acute (4) Hypotension during surgery ICD Codes: I97.88 - Other intraoperative complications of the circulatory system, not elsewhere classified; I95.89 - Other hypotension Status: Acute Assessment and Plan 1) Mechanical fall with hip fracture POD #1 2) Mild hypotension/tachycardic during the case There is mention of SVT, but everything on anesthesia sheet is sinus tachycardia (no SVT) Hypotension most likely due to dehydration and anesthesia 3) EKG shows no changes 4) 2D echo pending 5) Follow up outpatient for consideration of Holter, event monitor or loop recorder due to syncopal episodes 6) Plan to stop HCTZ due to questionable dehydration and syncope Problem Qualifiers (1) Fall: Qualified Codes: W19.XXXA - Unspecified fall, initial encounter (2) Femoral neck fracture: Qualified Codes: S72.001A - Fracture of unspecified part of neck of right femur , initial encounter for closed fracture Joey Wilder DO Jan 15, 2018 12:22
--- NOTE | 2018-01-15 15:05 | HHI.FF ---
Face to Face Verification Diagnosis: (1) Fall with injury (2) HTN (hypertension) (3) Hypotension during surgery (4) Femoral neck fracture (5) Hyperlipidemia (6) Hypertension (7) Gout Physical Therapy Order: Evaluate and Treat, Improve ambulation Instructions: Right hip pinning Home Health Nursing Order: Wound care and dressing changes Instructions: Daily dressing changes of right hip I have seen patient Sunil Edward on 01/15/18. My clinical findings support the need for the requested home health care services because: High risk of falls I certify that my clinical findings support that this patient is homebound because: Post-op weakness Unsteady gait/balance Abilio Lindsay MD R3 Jan 15, 2018 15:05
--- NOTE | 2018-01-15 16:28 | HHI.DCPOC ---
Discharge Care Plan Diagnosis: (1) Hypertension (2) Hyperlipidemia (3) Femoral neck fracture (4) Osteoarthritis (5) Fall with injury Goals to Promote Your Health * To prevent worsening of your condition and complications * To maintain your health at the optimal level Directions to Meet Your Goals Take your medications as prescribed Follow your dietary instruction Follow activity as directed Keep your appointments as scheduled Take your immunizations and boosters as scheduled If your symptoms worsen call your PCP, if no PCP go to Urgent Care Center or Emergency Room Smoking is Dangerous to Your Health. Avoid second hand smoke Call the 24-hour hour crisis hotline for domestic abuse at Abilio Lindsay MD R3 Jan 15, 2018 16:28
--- NOTE | 2018-01-15 18:58 | ECHRPT ---
Indication: HYPERTENSIVE HEART DISEASE CONCLUSIONS Normal left ventricular size. Wall thickness is normal. The left ventricular systolic function is low normal with an estimated ejection fraction in the rang e of 50- 55%. Aortic valve sclerosis with mild stenosis. Trace aortic valve regurgitation. There is mild to moderate tricuspid valve regurgitation. The estimated pulmonary arterial pressure is 45 mmHg. BP: / HR: Rhythm: MEASUREMENTS (Male / Female) Normal Values Technical Quality: 2D ECHO LV Diastolic Diameter PLAX 4.3 cm 4.2 - 5.9 / 3.9 - 5.3 cm LV Systolic Diameter PLAX 3.4 cm IVS Diastolic Thickness 1.1 cm 0.6 - 1.0 / 0.6 - 0.9 cm LVPW Diastolic Thickness 0.9 cm 0.6 - 1.0 / 0.6 - 0.9 cm LV Relative Wall Thickness 0.5 RV Internal Dim ED PLAX 1.9 cm LA Systolic Diameter LX 4.6 cm 3.0 - 4.0 / 2.7 - 3.8 cm DOPPLER AV Peak Velocity 253.4 cm/s AV Peak Gradient 25.7 mmHg AV Mean Gradient 15.5 mmHg AV Velocity Time Integral 50.6 cm LVOT Peak Velocity 144.0 cm/s LVOT Peak Gradient 8.3 mmHg LVOT Velocity Time Integral 26.4 cm Mitral E Point Velocity 81.9 cm/s Mitral A Point Velocity 107.0 cm/s Mitral E to A Ratio 0.8 TR Peak Velocity 318.0 cm/s TR Peak Gradient 40.4 mmHg FINDINGS LEFT VENTRICLE Normal left ventricular size. Wall thickness is normal. The left ventricular systolic function is low normal with an estimated ejection fraction in the rang e of 50- 55%. RIGHT VENTRICLE Normal right ventricular size and systolic function. LEFT ATRIUM The left atrial size is normal. RIGHT ATRIUM The right atrial size is normal. ATRIAL SEPTUM Normal atrial septal thickness without atrial level shunting by limited color doppler interrogation. AORTA The aortic root and proximal ascending aorta are normal in size on limited imaging. MITRAL VALVE Structurally normal mitral valve. No mitral valve stenosis or regurgitation. AORTIC VALVE Aortic valve sclerosis is present. Mild aortic stenosis. Trace aortic valve regurgitation. TRICUSPID VALVE There is mild to moderate tricuspid valve regurgitation. The estimated pulmonary arterial pressure is 45 mmHg. PULMONARY VALVE The pulmonary valve is not well visualized. VESSELS The inferior vena cava is normal in size. PERICARDIUM No pericardial effusion. Tanja Carlos MD, FACC (Electronically Signed) Final Date:15 January 2018 18:57
[2018-01-15] MEDS: PRAVASTATIN SOD 80 MG TAB PO SCH (20:18)
[2018-01-15] MEDS: TAMSULOSIN HCL 0.4 MG CAP PO SCH (20:18)
[2018-01-15] MEDS: ENOXAPARIN SODIUM 30 MG/0.3 ML SYRINGE SQ SCH (20:21)
--- NOTE | 2018-01-15 20:59 | EKG ---
Date Performed: 01/14/2018 Time Performed: 21:49:01 PTAGE: 72 years EKG: Sinus rhythm NORMAL ECG PREVIOUS TRACING : 01/14/2018 15.46 Since the previous tracing, no significant change noted DOCTOR: Jose Alfredo Magallon Interpretating Date/Time 01/15/2018 20:59:12
--- NOTE | 2018-01-15 21:19 | EKG ---
Date Performed: 01/14/2018 Time Performed: 15:46:41 PTAGE: 72 years EKG: Sinus rhythm NORMAL ECG PREVIOUS TRACING : 01/14/2018 11.17 Since the previous tracing, no significant change noted DOCTOR: Jose Alfredo Magallon Interpretating Date/Time 01/15/2018 21:18:43
[2018-01-16] VITALS (8 sets, daily range): BP systolic 110–136; BP diastolic 70–88; PULSE 68–116; RESP 17–18; TEMP 98.3–99.2; O2SAT 95–97
[2018-01-16] MEDS: ACETAMINOPHEN/HYDROcodone 325 MG/5 MG TAB PO PRN ×3 (05:38→20:52)
[2018-01-16] MEDS: SODIUM CHLOR 0.9% 1000 ML INJ 1,000 ML IV SCH ×2 (06:15→16:09)
[2018-01-16 06:26] LABS: HEMATOCRIT 40.3 % (39.0-51.0); HEMOGLOBIN 13.8 GM/DL (13.0-17.0); MEAN CORPUSCULAR HEMOGLOBIN 30.4 PG (27.0-34.0); MEAN CORPUSCULAR HGB CONC 34.2 % (32.0-36.0); MEAN PLATELET VOLUME 8.1 FL (7.0-11.0); PLATELET COUNT 136 TH/MM3 (150-450); RED BLOOD COUNT 4.53 MIL/MM3 (4.50-5.90); WHITE BLOOD COUNT 8.4 TH/MM3 (4.0-11.0)
[2018-01-16] MEDS ORDERED: HYDR-3288 PO (06:31)
--- NOTE | 2018-01-16 06:34 | HHI.FF ---
Face to Face Verification Diagnosis: (1) Femoral neck fracture Physical Therapy Gait training Hip: Hip fracture, Protocol: Right Right LE Weight Bearing: Toe Touch WB Nursing Dressing Changes: Daily dressing change, Xeroform, Coverderm/Primapore I have seen patient Sunil Edward on 01/16/18. My clinical findings support the need for the requested home health care services because: Ltd mobility - disease progression I certify that my clinical findings support that this patient is homebound because: Post-op weakness Tucker Vidal/Personal Injury Legal Assistant SMITH January 16, 2018 06:34
--- NOTE | 2018-01-16 06:35 | PD.ORT.PN ---
Subjective Subjective Remarks POD 2 s/p perc pinning of right hip resting comfortably. no complaints. no changes Objective Vitals Vital Signs Date Time Temp Pulse Resp B/P (MAP) Pulse Ox O2 Delivery O2 Flow Rate FiO2 01/16/18 03:23 98.4 81 18 134/74 (94) 96 01/15/18 23:45 98.7 86 18 134/80 (98) 97 01/15/18 19:32 98.9 75 17 131/75 (93) 96 01/15/18 16:00 99.1 75 20 132/68 (89) 97 01/15/18 12:30 97.7 83 18 119/68 (85) 98 01/15/18 10:48 20 01/15/18 10:00 89 01/15/18 08:30 98.2 77 24 117/64 (81) 100 01/15/18 08:00 77 01/15/18 07:32 99 Nasal Cannula 3.00 I/O 01/15/18 01/15/18 01/15/18 01/16/18 01/16/18 01/16/18 07:00 15:00 23:00 07:00 15:00 23:00 Intake Total 1400 ml 480 ml 480 ml Output Total 1000 ml 500 ml 1650 ml Balance 400 ml -20 ml -1170 ml Intake Oral 200 ml 480 ml 480 ml IV Total 1200 ml Output Urine Total 1000 ml 500 ml 1650 ml # Bowel Movements 0 Result Diagram: 01/16/18 0445 01/15/18 0401 Imaging Last 72 hours Impressions Chest X-Ray 01/13/18 1827 Signed Impressions: Service Date/Time: Saturday, January 13, 2018 19:01 - CONCLUSION: No acute disease. Sukhi Smith MD Knee X-Ray 01/13/181715 Signed Impressions: Service Date/Time: Saturday, January 13, 2018 17:39 - CONCLUSION: 1. Degenerative changes. 2. Questionable fracture lateral tibial plateau. Sukhi Smith MD Elbow X-Ray 01/13/181715 Signed Impressions: Service Date/Time: Saturday, January 13, 2018 17:45 - CONCLUSION: Degenerative changes without fracture. Sukhi Smith MD Hip and Pelvis X-Ray 01/13/18 0000 Signed Impressions: Service Date/Time: Saturday, January 13, 2018 17:36 - CONCLUSION: Nondisplaced fracture right femoral neck. Sukhi Smith MD Last 24 hours Impressions Chest X-Ray 01/13/18 1827 Signed Impressions: Service Date/Time: Saturday, January 13, 2018 19:01 - CONCLUSION: No acute disease. Sukhi Smith MD Knee X-Ray 01/13/18 1716 Signed Impressions: Service Date/Time: Saturday, January 13, 2018 17:39 - CONCLUSION: 1. Degenerative changes. 2. Questionable fracture lateral tibial plateau. Sukhi Smith MD Elbow X-Ray 01/13/181715 Signed Impressions: Service Date/Time: Saturday, January 13, 2018 17:45 - CONCLUSION: Degenerative changes without fracture. Sukhi Smith MD Objective Remarks RLE: dressings clean and dry. intact. NVI Assessment & Plan Assessment and Plan 1) Valgus impacted femoral neck fracture status post percutaneous pinning of right hip POD 2 Toe-touch weightbearing right lower extremity No active leg lifts or quad sets Daily dressing changes in a POD 2 with Xeroform and Primapore Lovenox Incentive spirometry Plan for follow-up x-rays and examination with Dr. Guerrero or PA in 2 weeks patient lives at home with who is not able bodied and patient states that she will struggle to help him. if patient is requiring a lot of assistance with walker, may benefit from rehab placement. 3008 on chart. will see how does with therapy today and make assessment tomorrow Tucker Vidal PA/Cylinder Handler PA January 16, 2018 06:35
[2018-01-16 06:55] LABS: ALBUMIN 3.3 GM/DL (3.4-5.0); BICARBONATE 26.4 MEQ/L (21.0-32.0); BLOOD UREA NITROGEN 21 MG/DL (7-18); CALCIUM 8.9 MG/DL (8.5-10.1); CHLORIDE 106 MEQ/L (98-107); CREATININE 1.12 MG/DL (0.60-1.30); GLOMERULAR FILTRATION RATE 65 ML/MIN (>89); GLUCOSE,RANDOM 102 MG/DL (74-106); SODIUM (NA) 141 MEQ/L (136-145)
[2018-01-16 07:01] LABS: ALKALINE PHOSPHATASE 59 U/L (45-117); ALT (GPT) 33 U/L (12-78); AST (GOT) 25 U/L (15-37); TOTAL BILIRUBIN ADULT 0.6 MG/DL (0.2-1.0)
[2018-01-16] MEDS: DOCUSATE SODIUM 50 MG/SENNA 8.6 MG TAB PO SCH ×2 (09:00→20:52)
--- NOTE | 2018-01-16 09:06 | HHI.FPPN ---
Subjective Remarks Pt seen and examined this morning. No acute events overnight. He reports feeling well overall. He denies chest pain, shortness of breath, abdominal pain , no issues with urination, +flatus. Yesterday nurse was concerned about his ability to transfer on his own at home at home health and PT can not be set up until tomorrow. He expresses the desire to go home. (Abilio Lindsay MD R3) Objective Vitals Vital Signs Date Time Temp Pulse Resp B/P (MAP) Pulse Ox O2 Delivery O2 Flow Rate FiO2 01/16/18 08:00 98.3 80 17 126/71 (89) 97 01/16/18 03:23 98.4 81 18 134/74 (94) 96 01/15/18 23:45 98.7 86 18 134/80 (98) 97 01/15/18 19:32 98.9 75 17 131/75 (93) 96 01/15/18 16:00 99.1 75 20 132/68 (89) 97 01/15/18 12:30 97.7 83 18 119/68 (85) 98 01/15/18 10:48 20 01/15/18 10:00 89 I/O 01/15/18 01/15/18 01/15/18 01/16/18 01/16/18 01/16/18 07:00 15:00 23:00 07:00 15:00 23:00 Intake Total 1400 ml 480 ml 480 ml Output Total 1000 ml 500 ml 1650 ml Balance 400 ml -20 ml -1170 ml Intake Oral 200 ml 480 ml 480 ml IV Total 1200 ml Output Urine Total 1000 ml 500 ml 1650 ml # Bowel Movements 0 (Abilio Lindsay MD R3) Result Diagram: 01/16/18 0445 01/16/18 0445 Objective Remarks GENERAL: This is a well-nourished, well-developed patient, in no apparent distress, resting comfortably SKIN: Cool and dry. Dressing over right lateral hip, c/d/i HEAD: Atraumatic. Normocephalic. EYES: Pupils equal round and reactive. Extraocular motions grossly intact. NECK: No appreciated lymphadenopathy CARDIOVASCULAR: Regular rate and rhythm without murmurs. Normal peripheral perfusion RESPIRATORY: Clear to auscultation. Breath sounds equal bilaterally. No wheezes , rales or rhonchi GASTROINTESTINAL: Abdomen soft, non-tender, nondistended. No palpable masses. No guarding. MUSCULOSKELETAL: Extremities without edema. No calf tenderness. NEUROLOGICAL: Awake and alert. Cranial nerves grossly intact. Normal speech. (Abilio Lindsay MD R3) A/P Assessment and Plan Mr. Edward is a 72 yo male admitted due to right femoral fracture who underwent surgery on 01/14. There was a concern that he may have had some type of cardiac event due to mild hypotension and tachycardia during surgery. ACS was ruled out, cardiology consulted. Vital sings have been stable and pt reports feeling significantly improved. Discharge Planning Anticipate discharge once pt has been cleared by orthopedics, cardiology and pt is clinically stable and PT clears him to go home, later today. (Abilio Lindsay MD R3) Attending Attestation Patient seen and examined. Case reviewed and discussed with the resident team. Agree with plan of care as discussed with me and documented in the resident note. he is very ready to go home and will follow up with the appropriate Drs (Jennifer Cabral MD) Problem List: (1) Femoral neck fracture ICD Codes: S72.009A - Fracture of unspecified part of neck of unspecified femur , initial encounter for closed fracture Status: Acute Plan: Impression: Fall injury on the day prior to admission resulting in inability to ambulate. Hip/Pelvic XR- nondisplaced fracture of right femoral neck. . Knee XR- degenerative changes. -Pain control (on home Tylenol/Codeine) -[place] 5/325 for pain 3-10 -Management per Orthopedic Surgery -POD #2, s/p pinning of right hip -Daily dressing changes PT to reevaluate today 01/16 History: -Preoperative surgical risk -Impression: Prior history of tobacco abuse; CXR without acute disease. Preoperative electrolytes wnl. CBC with mild leukocytosis presumed to be reactive. ECG today without changes from priors. Per EMR review, patient had reported chest pain and syncope to Dr. Kapadia 09/2017 and cardiology referral was advised; he has had no symptoms since that time and did not follow-up. Since no symptoms concerning for angina or other vascular disease, patient does not seem to have any active cardiac disease -Will continue Statin and ASA 81 perioperatively (2) Hypotension during surgery ICD Codes: I97.88 - Other intraoperative complications of the circulatory system, not elsewhere classified; I95.89 - Other hypotension Status: Acute Plan: He was thought to have a cardiac event during surgery as he was hypotensive and tachycardic. unclear exactly what happened but he has had a cardiac workup for MD initiated SVT and hypotension during surgery -ACS ruled out -Telemetry -Echo with EF of 50-55% -Cardiology consulted, appreciate recommendations (3) HTN (hypertension) ICD Codes: I10 - Essential (primary) hypertension Plan: -Hold home HCTZ 12.5mg due to concern for dehydration -Continue Lisinopril 40mg daily -Will add PRN Hydralazine for SBP >180/DBP >100 (4) BPH with obstruction/lower urinary tract symptoms ICD Codes: N40.1 - Enlarged prostate with lower urinary tract symptoms; N13.8 - Other obstructive and reflux uropathy Status: Acute Plan: Impression: On home Tamsulosin 0.4mg HS -Continue home Tamsulosin -Voiding appropriately (5) Depression ICD Codes: F32.9 - Major depressive disorder, single episode, unspecified Status: Chronic Plan: Impression: Controlled at this time -Continue home Fluoxetine (6) Gout ICD Codes: M10.9 - Gout, unspecified Status: Acute Plan: -Continue home Allopurinol (7) DVT Prophylaxis Status: Acute Plan: -Lovenox (8) Fluids, Electrolytes, and Nutrition Status: Acute Plan: Fluids: Oral hydration Electrolytes: metabolic panel reassuring on admission Nutrition: Regular diet (Abilio Lindsay MD R3) Problem Qualifiers (1) Femoral neck fracture: Qualified Codes: S72.001A - Fracture of unspecified part of neck of right femur , initial encounter for closed fracture (2) HTN (hypertension): Qualified Codes: I10 - Essential (primary) hypertension (3) Depression: Qualified Codes: F32.9 - Major depressive disorder, single episode, unspecified (4) Gout: Qualified Codes: M10.9 - Gout, unspecified Abilio Lindsay MD R3 January 16, 2018 09:06 Jennifer Cabral MD January 18, 2018 13:34
[2018-01-16] MEDS: FLUoxetine HCL 20 MG CAP PO SCH (09:55)
[2018-01-16] MEDS: LISINOPRIL 20 MG TAB PO SCH (09:56)
[2018-01-16] MEDS: ALLOPURINOL 300 MG TAB PO SCH (09:56)
[2018-01-16] MEDS: ASPIRIN EC 81 MG TABEC PO SCH (09:56)
[2018-01-16] MEDS: CHOLECALCIFEROL (VIT D3) 5000 UNIT CAP PO SCH (09:57)
[2018-01-16] MEDS: SODIUM CHLORIDE 0.9% FLUSH 10 ML FLUSH IV FLUSH SCH ×2 (09:57→20:52)
[2018-01-16] MEDS ORDERED: WHEEMIS3 (12:22)
[2018-01-16] MEDS: TAMSULOSIN HCL 0.4 MG CAP PO SCH (20:52)
[2018-01-16] MEDS: PRAVASTATIN SOD 80 MG TAB PO SCH (20:53)
[2018-01-16] MEDS: ENOXAPARIN SODIUM 30 MG/0.3 ML SYRINGE SQ SCH (20:53)
--- NOTE | 2018-01-16 23:37 | PD.CARD.PN ---
Subjective Subjective Remarks Patient was seen earlier today, late entry note No events overnight No complaints Up and ambulating Telemetry showing sinus rhythm 01/16 Heart rate recorded as 116, patient was just up and walking before this, sinus tachycardia Objective Medications Current Medications Medications (Trade) Dose Ordered Sig/Hugo Route Start Time Stop Time Status Last Admin (Tylenol) 650 mg Q4H PRN PO 01/13/18 20:30 (Zofran Inj) 4 mg Q6H PRN IVP 01/13/18 20:30 (Narcan Inj) 0.4 mg UNSCH PRN IV PUSH 01/13/18 20:30 (Daria-Colace) 1 tab BID PO 01/13/18 21:00 01/16/18 20:52 (Dulcolax Supp) 10 mg DAILY PRN RECTAL 01/13/18 20:30 (Zyloprim) 300 mg DAILY PO 01/14/18 09:00 01/16/18 09:56 (Ecotrin Ec) 81 mg DAILY PO 01/14/18 09:00 01/16/18 09:56 (Microzide) 12.5 mg DAILY PO 01/14/18 09:00 Future Hold (Flomax) 0.4 mg HS PO 01/13/18 21:00 01/16/18 20:52 (Prinivil) 40 mg DAILY PO 01/14/18 09:00 01/16/18 09:56 (Pravachol) 80 mg HS PO 01/13/18 21:00 01/16/18 20:53 (Apresoline) 10 mg Q8HR PRN PO 01/13/18 21:45 (Lopressor) 25 mg LAWYER CRIMINAL PRN PO 01/14/18 01:15 01/17/18 01:14 (Betadine 5% Antisepsis Kit) 1 applic LAWYER CRIMINAL PRN EACH NARE 01/14/18 01:15 01/17/18 01:14 (Chlorhexidine 2% Cloth) 3 pack LAWYER CRIMINAL PRN TOPICAL 01/14/18 01:15 01/17/18 01:14 Sodium Chloride 1,000 ml @ 100 mls/hr Q10H IV 01/14/18 04:15 01/15/18 00:15 (Lovenox Inj) 30 mg Q24H SQ 01/14/18 21:30 01/16/18 20:53 (Milam 5-325 Mg) 1 tab Q4H PRN PO 01/14/18 09:15 01/16/18 20:52 (Vitamin D3) 5,000 units DAILY PO 01/15/18 09:00 01/16/18 09:57 (NS Flush) 2 ml BID IV FLUSH 01/14/18 21:00 01/16/18 20:52 (NS Flush) 2 ml UNSCH PRN IV FLUSH 01/14/18 10:15 (Nitrostat Sl) 0.4 mg Q5M PRN SL 01/14/18 10:30 (PROzac) 40 mg DAILY PO 01/15/18 10:30 01/16/18 09:55 Vital Signs / I&O Vital Signs Date Time Temp Pulse Resp B/P (MAP) Pulse Ox O2 Delivery O2 Flow Rate FiO2 01/16/18 19:43 98.8 82 18 136/88 (104) 96 01/16/18 16:00 99.2 75 17 133/77 (95) 96 01/16/18 11:33 98.3 116 17 110/70 (83) 96 01/16/18 10:20 97 21 01/16/18 08:00 98.3 80 17 126/71 (89) 97 01/16/18 03:23 98.4 81 18 134/74 (94) 96 01/15/18 23:45 98.7 86 18 134/80 (98) 97 I/O 01/16/18 01/16/18 01/16/18 01/17/18 01/17/18 01/17/18 07:00 15:00 23:00 07:00 15:00 23:00 Intake Total 480 ml 480 ml Output Total 1650 ml Balance -1170 ml 480 ml Intake Oral 480 ml 480 ml Output Urine Total 1650 ml # Voids 3 # Bowel Movements 0 1 Physical Exam GENERAL: NAD, AAOx3 SKIN: Warm and dry. HEAD: Atraumatic. Normocephalic. EYES: Pupils equal and round. No scleral icterus. No injection or drainage. ENT: No nasal bleeding or discharge. Mucous membranes pink and moist. NECK: Trachea midline. No JVD. CARDIOVASCULAR: Regular rate and rhythm. RESPIRATORY: No accessory muscle use. Clear to auscultation. Breath sounds equal bilaterally. GASTROINTESTINAL: Abdomen soft, non-tender, nondistended. Hepatic and splenic margins not palpable. MUSCULOSKELETAL: Extremities without clubbing, cyanosis, or edema. No obvious deformities. NEUROLOGICAL: Awake and alert. No obvious cranial nerve deficits. Motor grossly within normal limits. Five out of 5 muscle strength in the arms and legs. Normal speech. PSYCHIATRIC: Appropriate mood and affect; insight and judgment normal. Laboratory Laboratory Tests Test 01/16/18 04:45 White Blood Count 8.4 TH/MM3 Red Blood Count 4.53 MIL/MM3 Hemoglobin 13.8 GM/DL Hematocrit 40.3 % Mean Corpuscular Volume 89.0 FL Mean Corpuscular Hemoglobin 30.4 PG Mean Corpuscular Hemoglobin Concent 34.2 % Red Cell Distribution Width 15.0 % Platelet Count 136 TH/MM3 Mean Platelet Volume 8.1 FL Blood Urea Nitrogen 21 MG/DL Creatinine 1.12 MG/DL Random Glucose 102 MG/DL Total Protein 7.0 GM/DL Albumin 3.3 GM/DL Calcium Level 8.9 MG/DL Alkaline Phosphatase 59 U/L Aspartate Amino Transf (AST/SGOT) 25 U/L Alanine Aminotransferase (ALT/SGPT) 33 U/L Total Bilirubin 0.6 MG/DL Sodium Level 141 MEQ/L Potassium Level 4.0 MEQ/L Chloride Level 106 MEQ/L Carbon Dioxide Level 26.4 MEQ/L Anion Gap 9 MEQ/L Estimat Glomerular Filtration Rate 65 ML/MIN Assessment and Plan Problem List: (1) Syncope ICD Codes: R55 - Syncope and collapse (2) Fall ICD Codes: W19.XXXA - Unspecified fall, initial encounter Status: Acute (3) Femoral neck fracture ICD Codes: S72.009A - Fracture of unspecified part of neck of unspecified femur , initial encounter for closed fracture Status: Acute (4) Hypotension during surgery ICD Codes: I97.88 - Other intraoperative complications of the circulatory system, not elsewhere classified; I95.89 - Other hypotension Status: Acute Assessment and Plan 1) Mechanical fall with hip fracture POD #2 2) Mild hypotension/tachycardic during the case There is mention of SVT, but everything on anesthesia sheet is sinus tachycardia (no SVT) Hypotension most likely due to dehydration and anesthesia 3) EKG shows no changes 4) EF 50-55% 5) Follow up outpatient for consideration of Holter, event monitor or loop recorder due to syncopal episodes 6) Plan to stop HCTZ due to questionable dehydration and syncope Problem Qualifiers (1) Syncope: Qualified Codes: R55 - Syncope and collapse (2) Fall: Qualified Codes: W19.XXXA - Unspecified fall, initial encounter (3) Femoral neck fracture: Qualified Codes: S72.001A - Fracture of unspecified part of neck of right femur , initial encounter for closed fracture Joey Wilder DO January 16, 2018 23:37
[2018-01-17] VITALS (7 sets, daily range): BP systolic 101–127; BP diastolic 71–73; PULSE 68–103; RESP 16–18; TEMP 97.9–98.8; O2SAT 95–97
[2018-01-17] MEDS: SODIUM CHLOR 0.9% 1000 ML INJ 1,000 ML IV SCH ×2 (02:15→11:01)
--- NOTE | 2018-01-17 06:52 | PD.ORT.PN ---
Subjective Subjective Remarks POD 3 s/p perc pinning of right hip resting comfortably. no complaints. no changes Objective Vitals Vital Signs Date Time Temp Pulse Resp B/P (MAP) Pulse Ox O2 Delivery O2 Flow Rate FiO2 01/17/18 04:25 98.0 77 18 120/71 (87) 96 01/17/18 00:00 68 01/16/18 23:58 98.4 79 18 136/77 (96) 95 01/16/18 20:52 Room Air 01/16/18 20:07 77 01/16/18 19:43 98.8 82 18 136/88 (104) 96 01/16/18 16:00 99.2 75 17 133/77 (95) 96 01/16/18 11:33 98.3 116 17 110/70 (83) 96 01/16/18 10:20 97 21 01/16/18 08:00 98.3 80 17 126/71 (89) 97 I/O 01/16/18 01/16/18 01/16/18 01/17/18 01/17/18 01/17/18 07:00 15:00 23:00 07:00 15:00 23:00 Intake Total 480 ml 480 ml 480 ml Output Total 1650 ml 600 ml Balance -1170 ml 480 ml -120 ml Intake Oral 480 ml 480 ml 480 ml Output Urine Total 1650 ml 600 ml # Voids 3 # Bowel Movements 0 1 0 Result Diagram: 01/16/18 0445 01/16/18 0445 Imaging Last 72 hours Impressions Chest X-Ray 01/13/18 1827 Signed Impressions: Service Date/Time: Saturday, January 13, 2018 19:01 - CONCLUSION: No acute disease. Sukhi Smith MD Knee X-Ray 01/13/181715 Signed Impressions: Service Date/Time: Saturday, January 13, 2018 17:39 - CONCLUSION: 1. Degenerative changes. 2. Questionable fracture lateral tibial plateau. Sukhi Smith MD Elbow X-Ray 01/13/181715 Signed Impressions: Service Date/Time: Saturday, January 13, 2018 17:45 - CONCLUSION: Degenerative changes without fracture. Sukhi Smith MD Hip and Pelvis X-Ray 01/13/18 0000 Signed Impressions: Service Date/Time: Saturday, January 13, 2018 17:36 - CONCLUSION: Nondisplaced fracture right femoral neck. Sukhi Smith MD Last 24 hours Impressions Chest X-Ray 01/13/187 Signed Impressions: Service Date/Time: Saturday, January 13, 2018 19:01 - CONCLUSION: No acute disease. Sukhi Smith MD Knee X-Ray 01/13/18 1716 Signed Impressions: Service Date/Time: Saturday, January 13, 2018 17:39 - CONCLUSION: 1. Degenerative changes. 2. Questionable fracture lateral tibial plateau. Sukhi Smith MD Elbow X-Ray 01/13/181715 Signed Impressions: Service Date/Time: Saturday, January 13, 2018 17:45 - CONCLUSION: Degenerative changes without fracture. Sukhi Smith MD Objective Remarks RLE: dressings clean and dry. intact. NVI Assessment & Plan Assessment and Plan 1) Valgus impacted femoral neck fracture status post percutaneous pinning of right hip POD 3 Toe-touch weightbearing right lower extremity No active leg lifts or quad sets Daily dressing changes in a POD 2 with Xeroform and Primapore Lovenox Incentive spirometry Plan for follow-up x-rays and examination with Dr. Guerrero or PA in 2 weeks patient lives at home with who is not able bodied and patient states that she will struggle to help him. if patient is requiring a lot of assistance with walker, may benefit from rehab placement. 3008 on chart. will see how does with therapy today and make assessment tomorrow plan for DC to rehab f/u with Cesar watkins PA in 2 weeks Tucker Vidal PA/Infrastructure Project Manager PA January 17, 2018 06:51
--- NOTE | 2018-01-17 08:28 | HHI.FPPN ---
Subjective Remarks Pt seen and examined this morning. No acute events overnight. He denies chest pain, shortness of breath, abdominal pain. He has been able to move around his room. He reports feeling very well this morning and would like to go home. (Abilio Lindsay MD R3) Objective Vitals Vital Signs Date Time Temp Pulse Resp B/P (MAP) Pulse Ox O2 Delivery O2 Flow Rate FiO2 01/17/18 04:25 98.0 77 18 120/71 (87) 96 01/17/18 00:00 68 01/16/18 23:58 98.4 79 18 136/77 (96) 95 01/16/18 20:52 Room Air 01/16/18 20:07 77 01/16/18 19:43 98.8 82 18 136/88 (104) 96 01/16/18 16:00 99.2 75 17 133/77 (95) 96 01/16/18 11:33 98.3 116 17 110/70 (83) 96 01/16/18 10:20 97 21 I/O 01/16/18 01/16/18 01/16/18 01/17/18 01/17/18 01/17/18 07:00 15:00 23:00 07:00 15:00 23:00 Intake Total 480 ml 480 ml 480 ml Output Total 1650 ml 600 ml Balance -1170 ml 480 ml -120 ml Intake Oral 480 ml 480 ml 480 ml Output Urine Total 1650 ml 600 ml # Voids 3 # Bowel Movements 0 1 0 (Abilio Lindsay MD R3) Result Diagram: 01/16/18 0445 01/16/18 0445 Objective Remarks GENERAL: This is a well-nourished, well-developed patient, in no apparent distress, resting comfortably SKIN: Cool and dry. Dressing over right lateral hip, c/d/i HEAD: Atraumatic. Normocephalic. EYES: Pupils equal round and reactive. Extraocular motions grossly intact. NECK: No appreciated lymphadenopathy CARDIOVASCULAR: Regular rate and rhythm without murmurs. Normal peripheral perfusion RESPIRATORY: Clear to auscultation. Breath sounds equal bilaterally. No wheezes , rales or rhonchi GASTROINTESTINAL: Abdomen soft, non-tender, nondistended. No palpable masses. No guarding. MUSCULOSKELETAL: Extremities without edema. No calf tenderness. NEUROLOGICAL: Awake and alert. Cranial nerves grossly intact. Normal speech. (Abilio Lindsay MD R3) A/P Assessment and Plan Mr. Edward is a 72 yo male admitted due to right femoral fracture who underwent surgery on 01/14. There was a concern that he may have had some type of cardiac event due to mild hypotension and tachycardia during surgery. ACS was ruled out, cardiology consulted. Vital sings have been stable and pt reports feeling significantly improved. Discharge Planning Anticipate discharge later today. (Abilio Lindsay MD R3) Attending Attestation Patient seen and examined. Case reviewed and discussed with the resident team. Agree with plan of care as discussed with me and documented in the resident note. [facility] (Jennifer Cabral MD) Problem List: (1) Femoral neck fracture ICD Codes: S72.009A - Fracture of unspecified part of neck of unspecified femur , initial encounter for closed fracture Status: Acute Plan: Impression: Fall injury on the day prior to admission resulting in inability to ambulate. Hip/Pelvic XR- nondisplaced fracture of right femoral neck. . Knee XR- degenerative changes. -Pain control (on home Tylenol/Codeine) -[place] 5/325 for pain 3-10 -Management per Orthopedic Surgery -POD #3, s/p pinning of right hip -Daily dressing changes PT recommends home with home PT (2) Hypotension during surgery ICD Codes: I97.88 - Other intraoperative complications of the circulatory system, not elsewhere classified; I95.89 - Other hypotension Status: Acute Plan: He was thought to have a cardiac event during surgery as he was hypotensive and tachycardic. unclear exactly what happened but he has had a cardiac workup for [place] initiated SVT and hypotension during surgery -ACS ruled out -Telemetry -Echo with EF of 50-55% -Cardiology consulted, appreciate recommendations (3) HTN (hypertension) ICD Codes: I10 - Essential (primary) hypertension Plan: -Hold home HCTZ 12.5mg due to concern for dehydration -Continue Lisinopril 40mg daily -Will add PRN Hydralazine for SBP >180/DBP >100 (4) BPH with obstruction/lower urinary tract symptoms ICD Codes: N40.1 - Enlarged prostate with lower urinary tract symptoms; N13.8 - Other obstructive and reflux uropathy Status: Acute Plan: Impression: On home Tamsulosin 0.4mg HS -Continue home Tamsulosin -Voiding appropriately (5) Depression ICD Codes: F32.9 - Major depressive disorder, single episode, unspecified Status: Chronic Plan: Impression: Controlled at this time -Continue home Fluoxetine (6) Gout ICD Codes: M10.9 - Gout, unspecified Status: Acute Plan: -Continue home Allopurinol (7) DVT Prophylaxis Status: Acute Plan: -Lovenox (8) Fluids, Electrolytes, and Nutrition Status: Acute Plan: Fluids: Oral hydration Electrolytes: metabolic panel reassuring on admission Nutrition: Regular diet (Abilio Lindsay MD R3) Problem Qualifiers (1) Femoral neck fracture: Qualified Codes: S72.001A - Fracture of unspecified part of neck of right femur , initial encounter for closed fracture (2) HTN (hypertension): Qualified Codes: I10 - Essential (primary) hypertension (3) Depression: Qualified Codes: F32.9 - Major depressive disorder, single episode, unspecified (4) Gout: Qualified Codes: M10.9 - Gout, unspecified Abilio Lindsay MD R3 January 17, 2018 08:28 Jennifer Cabral MD January 18, 2018 13:35
[2018-01-17] MEDS: DOCUSATE SODIUM 50 MG/SENNA 8.6 MG TAB PO SCH (09:00)
[2018-01-17] MEDS: CHOLECALCIFEROL (VIT D3) 5000 UNIT CAP PO SCH (09:04)
[2018-01-17] MEDS: FLUoxetine HCL 20 MG CAP PO SCH (09:04)
[2018-01-17] MEDS: ALLOPURINOL 300 MG TAB PO SCH (09:04)
[2018-01-17] MEDS: ASPIRIN EC 81 MG TABEC PO SCH (09:04)
[2018-01-17] MEDS: LISINOPRIL 20 MG TAB PO SCH (09:05)
[2018-01-17] MEDS: ACETAMINOPHEN/HYDROcodone 325 MG/5 MG TAB PO PRN ×2 (09:06→13:26)
[2018-01-17] MEDS: SODIUM CHLORIDE 0.9% FLUSH 10 ML FLUSH IV FLUSH SCH (09:07)
--- NOTE | 2018-01-17 09:20 | PD.CARD.PN ---
Subjective Subjective Remarks No events overnight No complaints Up and ambulating Telemetry showing sinus rhythm 01/16 Heart rate recorded as 116, patient was just up and walking before this, sinus tachycardia Objective Medications Current Medications Medications (Trade) Dose Ordered Sig/Hugo Route Start Time Stop Time Status Last Admin (Tylenol) 650 mg Q4H PRN PO 01/13/18 20:30 (Zofran Inj) 4 mg Q6H PRN IVP 01/13/18 20:30 (Narcan Inj) 0.4 mg UNSCH PRN IV PUSH 01/13/18 20:30 (Daria-Colace) 1 tab BID PO 01/13/18 21:00 01/16/18 20:52 (Dulcolax Supp) 10 mg DAILY PRN RECTAL 01/13/18 20:30 (Zyloprim) 300 mg DAILY PO 01/14/18 09:00 01/17/18 09:04 (Ecotrin Ec) 81 mg DAILY PO 01/14/18 09:00 01/17/18 09:04 (Microzide) 12.5 mg DAILY PO 01/14/18 09:00 Future Hold (Flomax) 0.4 mg HS PO 01/13/18 21:00 01/16/18 20:52 (Prinivil) 40 mg DAILY PO 01/14/18 09:00 01/17/18 09:05 (Pravachol) 80 mg HS PO 01/13/18 21:00 01/16/18 20:53 (Apresoline) 10 mg Q8HR PRN PO 01/13/18 21:45 Sodium Chloride 1,000 ml @ 100 mls/hr Q10H IV 01/14/18 04:15 01/15/18 00:15 (Lovenox Inj) 30 mg Q24H SQ 01/14/18 21:30 01/16/18 20:53 ([place] 5-325 Mg) 1 tab Q4H PRN PO 01/14/18 09:15 01/17/18 09:06 (Vitamin D3) 5,000 units DAILY PO 01/15/18 09:00 01/17/18 09:04 (NS Flush) 2 ml BID IV FLUSH 01/14/18 21:00 01/17/18 09:07 (NS Flush) 2 ml UNSCH PRN IV FLUSH 01/14/18 10:15 (Nitrostat Sl) 0.4 mg Q5M PRN SL 01/14/18 10:30 (PROzac) 40 mg DAILY PO 01/15/18 10:30 01/17/18 09:04 Vital Signs / I&O Vital Signs Date Time Temp Pulse Resp B/P (MAP) Pulse Ox O2 Delivery O2 Flow Rate FiO2 01/17/18 04:25 98.0 77 18 120/71 (87) 96 01/17/18 00:00 68 01/16/18 23:58 98.4 79 18 136/77 (96) 95 01/16/18 20:52 Room Air 01/16/18 20:07 77 01/16/18 19:43 98.8 82 18 136/88 (104) 96 01/16/18 16:00 99.2 75 17 133/77 (95) 96 01/16/18 11:33 98.3 116 17 110/70 (83) 96 01/16/18 10:20 97 21 I/O 01/16/18 01/16/18 01/16/18 01/17/18 01/17/18 01/17/18 07:00 15:00 23:00 07:00 15:00 23:00 Intake Total 480 ml 480 ml 480 ml Output Total 1650 ml 600 ml Balance -1170 ml 480 ml -120 ml Intake Oral 480 ml 480 ml 480 ml Output Urine Total 1650 ml 600 ml # Voids 3 # Bowel Movements 0 1 0 Physical Exam GENERAL: NAD, AAOx3 SKIN: Warm and dry. HEAD: Atraumatic. Normocephalic. EYES: Pupils equal and round. No scleral icterus. No injection or drainage. ENT: No nasal bleeding or discharge. Mucous membranes pink and moist. NECK: Trachea midline. No JVD. CARDIOVASCULAR: Regular rate and rhythm. RESPIRATORY: No accessory muscle use. Clear to auscultation. Breath sounds equal bilaterally. GASTROINTESTINAL: Abdomen soft, non-tender, nondistended. Hepatic and splenic margins not palpable. MUSCULOSKELETAL: Extremities without clubbing, cyanosis, or edema. No obvious deformities. NEUROLOGICAL: Awake and alert. No obvious cranial nerve deficits. Motor grossly within normal limits. Five out of 5 muscle strength in the arms and legs. Normal speech. PSYCHIATRIC: Appropriate mood and affect; insight and judgment normal. Assessment and Plan Problem List: (1) Syncope ICD Codes: R55 - Syncope and collapse (2) Fall ICD Codes: W19.XXXA - Unspecified fall, initial encounter Status: Acute (3) Femoral neck fracture ICD Codes: S72.009A - Fracture of unspecified part of neck of unspecified femur , initial encounter for closed fracture Status: Acute (4) Hypotension during surgery ICD Codes: I97.88 - Other intraoperative complications of the circulatory system, not elsewhere classified; I95.89 - Other hypotension Status: Acute Assessment and Plan 1) Mechanical fall with hip fracture POD #3 2) Mild hypotension/tachycardic during the case There is mention of SVT, but everything on anesthesia sheet is sinus tachycardia (no SVT) Hypotension most likely due to dehydration and anesthesia 3) EKG shows no changes 4) EF 50-55% 5) Follow up outpatient for consideration of Holter, event monitor or loop recorder due to syncopal episodes 6) Plan to stop HCTZ due to questionable dehydration and syncope 7) No further cardiovascular workup at this time Problem Qualifiers (1) Syncope: Qualified Codes: R55 - Syncope and collapse (2) Fall: Qualified Codes: W19.XXXA - Unspecified fall, initial encounter (3) Femoral neck fracture: Qualified Codes: S72.001A - Fracture of unspecified part of neck of right femur , initial encounter for closed fracture Joey Wilder DO January 17, 2018 09:20
== END 2018-01-17 16:20 | disposition home health service (06) | DRG 481 ==
LOC: NEPE 17:05 → NEDA 18:50 → N06A 20:10 → N03B 01-14 10:08 → N06A 01-15 12:28
PROVIDERS: ADMIT Family Medicine; ATTEND Family Medicine
PROC: 0QS634Z Reposition Right Upper Femur with Internal Fixation Device, Percutaneous Approach (ICD-10-PCS; principal; 2018-01-14 08:17)
DX: S72.001A Fracture of unspecified part of neck of right femur, initial encounter for closed fracture (principal); N13.8 Other obstructive and reflux uropathy; I10 Essential (primary) hypertension; R00.0 Tachycardia, unspecified; I95.81 Postprocedural hypotension; E86.0 Dehydration; H54.8 Legal blindness, as defined in USA; E78.5 Hyperlipidemia, unspecified; F32.9 Major depressive disorder, single episode, unspecified; K21.9 Gastro-esophageal reflux disease without esophagitis; G89.29 Other chronic pain; F41.9 Anxiety disorder, unspecified; N28.9 Disorder of kidney and ureter, unspecified; M10.9 Gout, unspecified; F43.10 Post-traumatic stress disorder, unspecified; M17.0 Bilateral primary osteoarthritis of knee; N40.1 Benign prostatic hyperplasia with lower urinary tract symptoms; W01.0XXA Fall on same level from slipping, tripping and stumbling without subsequent striking against object, initial encounter; Z79.899 Other long term (current) drug therapy; Z87.442 Personal history of urinary calculi; Z87.891 Personal history of nicotine dependence; Z88.0 Allergy status to penicillin; Z88.2 Allergy status to sulfonamides; Z86.73 Personal history of transient ischemic attack (TIA), and cerebral infarction without residual deficits
CPT/HCPCS: 71045; 73080; 73502; 73564; 76000; 80048; 80053; 80061; 82306; 82550; 84443; 84484; 85025; 85027; 85610; 85730; 86850; 86900; 86901; 93005; 93306; 99285; C1713; J1650; J2250; J2270; J3010; J7030; J7120